=== PATIENT | male | born 1955 | race Caucasian/White ===

== ENCOUNTER 2016-08-26 16:16 | Emergency (ER) | payer OTHER ==
[2016-08-26] MEDS ORDERED: AMOXIC-POT CLAV 875MG STARTER 2 EACH TABLET PO STA (17:35)
[2016-08-26] MEDS ORDERED: SULFAMETH-TMP DS STARTER PACK 2 TAB BTL PO STA (17:35)
--- NOTE | 2016-08-26 18:00 | ED ---
General Adult HPI - General Chief complaint: Skin/Abscess/Foreign Body Stated complaint: Leg Pain Time Seen by Provider: 08/26/16 17:00 Source: patient, EMS, RN notes reviewed, old records reviewed Mode of arrival: EMS - History of Present Illness Initial comments: Chief complaint history of present illness a 31-year-old male with a chronic left leg infection. He has an the past been in the hospital and spent multiple weeks in nursing facility's. Recently noticed some redness to his mid left thigh area. He's been having the wound clean at home with normal saline and put some peroxide by a visiting attendant. Denying fever or other problems this time. Thinks he needs to be on antibiotics. - Related Data Home Medications Medication Instructions Recorded Confirmed Baclofen [Lioresal] 20 mg PO QID PRN 04/24/15 08/26/16 Ergocalciferol [Vitamin D2] 50,000 unit PO FR 04/24/15 08/26/16 Furosemide [Lasix] 80 mg PO BID 04/24/15 08/26/16 HYDROcodone/APAP 10-325MG [Ira[place] 1 tab PO QID PRN 04/24/15 08/26/16 10-325] Ibuprofen [Motrin] 800 mg PO Q8HR PRN 04/24/15 08/26/16 Potassium Chloride [K-Tab ER] 20 meq PO DAILY 04/24/15 08/26/16 Ranitidine HCl [Zantac] 150 mg PO BID 04/24/15 08/26/16 Acetaminophen [Tylenol] 500 mg PO TID PRN 09/25/15 08/26/16 Multivitamins, Thera [Multivitamin 1 tab PO DAILY 08/26/16 08/26/16 (formulary)] Previous Rx's Medication Instructions Recorded Amoxicillin/Potassium Clav 1 each PO Q12HR #20 tab 08/26/16 [Augmentin 875-125 Tablet] Sulfamethox-Tmp 800-160Mg [Bactrim 1 each PO Q12HR #20 tab 08/26/16 DS 800-160 mg] Allergies Allergy/AdvReac Type Severity Reaction Status Date / Time adhesive Allergy Rash/Hives Verified 08/26/16 16:59 latex Allergy Rash/Hives Verified 09/25/15 22:08 levofloxacin [From Levaquin] Allergy Rash/Hives Verified 08/26/16 16:59 metolazone Allergy Unknown Verified 08/26/16 16:59 ciprofloxacin [From Cipro] AdvReac Diarrhea Verified 08/26/16 16:59 ciprofloxacin HCl AdvReac Diarrhea Verified 08/26/16 16:59 [From Cipro] PAPER TAPE Allergy Mild Rash/Hives Uncoded 09/25/15 21:01 Review of Systems ROS Statement: Those systems with pertinent positive or pertinent negative responses have been documented in the HPI. Review of systems no complaint of headache chest pain shortness breath GI/ problems this time. Chronic left leg infection for over a year. Does not want return to the wound clinic because they scraped it and it hurts him. All systems are reviewed. Past medical problems significant for CHF, he's never had a cardiac cath or stent placed. He has had rheumatoid arthritis, and chronic nonhealing left leg ulcer. Surgeries left hip surgery twice he fractured through the old repair. Family history noncontributory. ALLERGIES to adhesives, latex, Levaquin, metolazone, Cipro and paper tape. ROS Other: All systems not noted in ROS Statement are negative. Past Medical History Past Medical History: Coronary Artery Disease (CAD), Chest Pain / Angina, Heart Failure, Rheumatoid Arthritis (RA), Rheumatoid Arthritis (RA) Additional Past Medical History / Comment(s): non healing left leg wound History of Any Multi-Drug Resistant Organisms: VRE Date of last positivie culture/infection: 07/07/15 MDRO Source:: left leg Additional Past Surgical History / Comment(s): L HIP SUGERY 1999, 2015 L hip repaired Past Anesthesia/Blood Transfusion Reactions: No Reported Reaction Past Psychological History: Anxiety, Depression Smoking Status: Current some day smoker Past Alcohol Use History: None Reported Past Drug Use History: None Reported - Past Family History Mother Family Medical History: Cancer Additional Family Medical History / Comment(s): SKIN,BREAST General Exam - General Exam Comments Initial Comments: General: The patient is awake and alert, in no distress, and does not appear acutely ill. Here because he thinks he is developing an infection for chronic daily infected slow to nonhealing wound on his left calf area. Cardiovascular: There is a regular rate and rhythm. No murmur, rub or gallop is appreciated. Respiratory: Lungs are clear to auscultation, respirations are non-labored, breath sounds are equal. No wheezes, stridor, rales, or rhonchi. Gastrointestinal: Soft, non-distended, non-tender abdomen without masses or organomegaly noted. There is no rebound or guarding present. No CVA tenderness. Bowel sounds are unremarkable. Back: There is no tenderness to palpation in the midline. There is no obvious deformity. No rashes noted. Musculoskeletal: The wound was undressed on the posterior aspect of his left leg. The area size of a silver dollar. Slowly healing. Not draining. Neurological: No neuro deficits. Skin: Skin is warm and dry and no rashes or lesions are noted. Course Vital Signs 08/26/16 16:22 Temperature 98.0 F Respiratory 18 Rate Medical Decision Making - Medical Decision Making Medical decision-making. The patient has had Augmentin and Bactrim in the past with good results for this particular wound. The patient be placed on Augmentin and Bactrim. Follow-up family physician and his infectious disease doctor. Return emergency room as needed X-ray of the femur and hip show healing bone. No acute fractures. Awaiting radiologist's final impression. 3 Disposition Clinical Impression: Chronic wound of extremity Disposition: HOME SELF-CARE Condition: Fair Instructions: Chronic Wound Care (ED) Additional Instructions: Continue frequent cleaning. Follow-up family physician and your infectious disease doctor. Take Augmentin and Bactrim as directed. Prescriptions: Amoxicillin/Potassium Clav [Augmentin 875-125 Tablet] 1 each PO Q12HR #20 tab Sulfamethox-Tmp 800-160Mg [Bactrim DS 800-160 mg] 1 each PO Q12HR #20 tab Referrals: Fredrick Pendleton MD [REFERRING] - 1-2 days Time of Disposition: 18:28
--- NOTE | 2016-08-26 18:45 | XR ---
Exam: FILM LEFT FEMUR INDICATION: Pain COMPARISON: Left femur radiograph 09/25/15 FINDINGS: 5 views of the left femur are obtained. 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 Since prior exam and additional lateral plate screw fixation of the mid femur shaft fracture is noted with improved alignment though portion of the fracture line is still visible. Previous distal left femur shaft plate screw fixation hardware with healed fracture again noted. The hardware appears intact. No hip joint malalignment. There is osteopenia. Osteoarthritic changes involving the knee joint are noted with medial compartment moderate knee joint space narrowing and marginal osteophyte formation. IMPRESSION: Since prior left femur exam there has been additional lateral plate screw fixation of a proximal femur shaft fracture with improved alignment though portion of the fracture line appears to still be visible. No new acute fracture. Hardware appears intact. Left total hip arthroplasty with heterotopic ossification again noted. No hip joint malalignment. Old healed fracture distal femur shaft with plate screw fixation hardware again noted. There is osteopenia. Osteoarthritic changes left knee joint.
--- NOTE | 2016-08-26 18:47 | XR ---
Exam: FILM LEFT HIP INDICATION: Pain COMPARISON: Left femur radiograph 09/25/15, left hip exam 09/25/15 FINDINGS: 2 views of the left hip are obtained. 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 Since prior exam an additional lateral plate screw fixation of the mid femur shaft fracture is noted with improved alignment though portion of the fracture line is still visible. Additional more distal plate screw fixation hardware in the femur shaft is noted partially imaged. Visualized hardware appears intact. No hip joint malalignment. There is osteopenia. Remaining soft tissues appear unremarkable radiographically. 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 No new acute fractures identified. Since prior exam an additional lateral plate screw fixation of the mid femur shaft fracture is noted with improved alignment though portion of the fracture line is still visible. Additional more distal plate screw fixation hardware in the femur shaft is noted partially imaged. Visualized hardware appears intact. No hip joint malalignment. There is osteopenia.
[2016-08-26 19:28] VITALS: BP 140/91; PULSE 78; RESP 16; TEMP 98.1
== END 2016-08-26 19:59 | disposition home or self-care (01) ==
LOC: EC 16:16
DX: L08.9 Local infection of the skin and subcutaneous tissue, unspecified (principal); S81.802D Unspecified open wound, left lower leg, subsequent encounter; F17.200 Nicotine dependence, unspecified, uncomplicated; Z98.890 Other specified postprocedural states; Z91.040 Latex allergy status; Z91.048 Other nonmedicinal substance allergy status; Z88.1 Allergy status to other antibiotic agents; Z88.8 Allergy status to other drugs, medicaments and biological substances; Z79.899 Other long term (current) drug therapy
CPT/HCPCS: 73502; 99284

== ENCOUNTER 2016-09-26 16:21 | Inpatient (IN) | payer OTHER ==
[2016-09-26] MEDS ORDERED: VANCOMYCIN 1,000 MG in SODIUM CHLORIDE 0.9% 250 ML IVPB STA (16:44)
[2016-09-26] MEDS ORDERED: IV VANCOMYCIN PER PHARMACY 1 EACH MISC MISCELLANE PRN (16:45)
[2016-09-26] MEDS ORDERED: HYDROmorphone 1 MG/ML 1 ML SYRINGE IVP STA (16:53)
[2016-09-26] MEDS ORDERED: ONDANSETRON 4 MG/2 ML VIAL IVP STA (16:53)
--- NOTE | 2016-09-26 16:57 | ED ---
General Adult HPI - General Chief complaint: Extremity Problem,Nontraumatic Stated complaint: WOUND ON LEFT LEG Time Seen by Provider: 09/26/16 16:31 Source: patient, EMS, RN notes reviewed, old records reviewed Mode of arrival: EMS Limitations: no limitations - History of Present Illness Initial comments: Patient 61-year-old male with a significant past medical history for chronic wound to the left lower leg, who presents emergency room today with a chief complaint of increased infection area patient does admit that he was seen in the emergency room approximate one month ago placed on Bactrim and Augmentin. He states been taking this antibiotic now for the past 3 weeks. He states that his noticed that there is increased redness and increased infection. He states he's had some sweats and chills. Patient does admit that he has care nurse sees and dress his wound. Patient states does not seem to be improving. Patient does admit that he has been admitted for this wound approximately a year ago. Patient denies any other complaints or symptoms. Patient denies any recent fever, chills, shortness of breath, chest pain, back pain, abdominal pain , nausea or vomiting, dysuria or hematuria, constipation or diarrhea, headaches or visual changes, or any other complaints. - Related Data Home Medications Medication Instructions Recorded Confirmed Baclofen [Lioresal] 20 mg PO QID PRN 04/24/15 09/26/16 Ergocalciferol [Vitamin D2] 50,000 unit PO FR 04/24/15 09/26/16 Furosemide [Lasix] 80 mg PO BID 04/24/15 09/26/16 HYDROcodone/APAP 10-325MG [M[place] 1 tab PO QID PRN 04/24/15 09/26/16 10-325] Ibuprofen [Motrin] 800 mg PO Q8HR PRN 04/24/15 09/26/16 Potassium Chloride [K-Tab ER] 20 meq PO DAILY 04/24/15 09/26/16 Ranitidine HCl [Zantac] 150 mg PO BID 04/24/15 09/26/16 Acetaminophen [Tylenol] 500 mg PO TID PRN 09/25/15 09/26/16 Multivitamins, Thera [Multivitamin 1 tab PO DAILY 08/26/16 09/26/16 (formulary)] Amoxicillin/Potassium Clav 1 tab PO Q12HR 09/26/16 09/26/16 [Augmentin 875-125 Tablet] Sulfamethox-Tmp 800-160Mg [Bactrim 1 tab PO Q12HR 09/26/16 09/26/16 DS 800-160 mg] Allergies Allergy/AdvReac Type Severity Reaction Status Date / Time adhesive Allergy Rash/Hives Verified 09/26/16 17:07 amoxicillin [From Augmentin] Allergy Rash/Hives Verified 09/26/16 17:09 clavulanic acid Allergy Rash/Hives Verified 09/26/16 17:09 [From Augmentin] latex Allergy Rash/Hives Verified 09/26/16 17:07 levofloxacin [From Levaquin] Allergy Rash/Hives Verified 09/26/16 17:07 metolazone Allergy Unknown Verified 09/26/16 17:07 sulfamethoxazole Allergy Rash/Hives Verified 09/26/16 17:09 [From Bactrim] trimethoprim [From Bactrim] Allergy Rash/Hives Verified 09/26/16 17:09 ciprofloxacin [From Cipro] AdvReac Diarrhea Verified 09/26/16 17:07 ciprofloxacin HCl AdvReac Diarrhea Verified 09/26/16 17:07 [From Cipro] PAPER TAPE Allergy Mild Rash/Hives Uncoded 09/25/15 21:01 Review of Systems ROS Statement: Those systems with pertinent positive or pertinent negative responses have been documented in the HPI. ROS Other: All systems not noted in ROS Statement are negative. Past Medical History Past Medical History: Coronary Artery Disease (CAD), Chest Pain / Angina, Heart Failure, Rheumatoid Arthritis (RA), Rheumatoid Arthritis (RA) Additional Past Medical History / Comment(s): non healing left leg wound History of Any Multi-Drug Resistant Organisms: VRE Date of last positivie culture/infection: 07/07/15 MDRO Source:: left leg Additional Past Surgical History / Comment(s): L HIP SUGERY 1999, 2015 L hip repaired Past Anesthesia/Blood Transfusion Reactions: No Reported Reaction Past Psychological History: Anxiety, Depression Smoking Status: Current some day smoker Past Alcohol Use History: None Reported Past Drug Use History: None Reported - Past Family History Mother Family Medical History: Cancer Additional Family Medical History / Comment(s): SKIN,BREAST General Exam - General Exam Comments Initial Comments: General: The patient is awake and alert, in no distress, and does not appear acutely ill. Eye: Pupils are equal, round and reactive to light, extra-ocular movements are intact. No nystagmus. There is normal conjunctiva bilaterally. No signs of icterus. Ears, nose, mouth and throat: There are moist mucous membranes and no oral lesions. Neck: The neck is supple, there is no tenderness or JVD. Cardiovascular: There is a regular rate and rhythm. No murmur, rub or gallop is appreciated. Respiratory: Lungs are clear to auscultation, respirations are non-labored, breath sounds are equal. No wheezes, stridor, rales, or rhonchi. Gastrointestinal: [Soft, non-distended, non-tender abdomen without masses or organomegaly noted. There is no rebound or guarding present. No CVA tenderness. Bowel sounds are unremarkable.] Musculoskeletal: Normal ROM, no tenderness. Strength 5/5. Sensation intact. Pulses equal bilaterally 2+. Neurological: A&O x 3. CN II-XII intact, There are no obvious motor or sensory deficits. Coordination appears grossly intact. Speech is normal. Skin: Ulcerated wound to the posterior aspect of the left lower leg. There is local redness or erythema to the left lower extremity with no lymphangitic streaking. Psychiatric: Cooperative, appropriate mood & affect, normal judgment. Limitations: no limitations Course Vital Signs 09/26/16 16:26 Temperature 98.3 F Pulse Rate 104 H Respiratory 18 Rate Blood Pressure 133/65 O2 Sat by Pulse 93 L Oximetry Medical Decision Making - Medical Decision Making Patient's x-ray reviewed and is negative for any acute abnormalities. Results were discussed with the patient. His labs been reviewed 17,000 white count. Patient does admit to increased pain and redness to the left calf area. Patient has been on antibiotics of Bactrim and Augmentin. He states is been no improvement. he will be admitted started on vancomycin here the emergency room. he is aware the plan states understanding. - Lab Data Result diagrams: 09/26/16 16:53 09/26/16 16:53 Lab Results 09/26/16 09/26/16 Range/Units 16:53 16:53 WBC 17.0 H (3.8-10.6) k/uL RBC 4.17 L (4.30-5.90) m/uL Hgb 14.6 (13.0-17.5) gm/dL Hct 42.3 (39.0-53.0) % MCV 101.3 H (80.0-100.0) fL MCH 34.9 (25.0-35.0) pg MCHC 34.5 (31.0-37.0) g/dL RDW 12.4 (11.5-15.5) % Plt Count 220 (150-450) k/uL Neutrophils % 92 % Lymphocytes % 4 % Monocytes % 3 % Eosinophils % 0 % Basophils % 0 % Neutrophils # 15.7 H (1.3-7.7) k/uL Lymphocytes # 0.7 L (1.0-4.8) k/uL Monocytes # 0.4 (0-1.0) k/uL Eosinophils # 0.1 (0-0.7) k/uL Basophils # 0.0 (0-0.2) k/uL Sodium 140 (137-145) mmol/L Potassium 3.7 (3.5-5.1) mmol/L Chloride 103 (98-107) mmol/L Carbon Dioxide 26 (22-30) mmol/L Anion Gap 11 mmol/L BUN 16 (9-20) mg/dL Creatinine 0.60 L (0.66-1.25) mg/dL Est GFR (MDRD) Af Amer >60 (>60 ml/min/1.73 sqM) Est GFR (MDRD) Non-Af >60 (>60 ml/min/1.73 sqM) Glucose 117 H (74-99) mg/dL Calcium 9.3 (8.4-10.2) mg/dL Total Bilirubin 0.9 (0.2-1.3) mg/dL AST 26 (17-59) U/L ALT 40 (21-72) U/L Alkaline Phosphatase 148 H (38-126) U/L Total Protein 6.1 L (6.3-8.2) g/dL Albumin 3.3 L (3.5-5.0) g/dL Disposition Clinical Impression: Wound cellulitis Disposition[facility] Condition: Stable Referrals: Monica Knight MD [Primary Care Provider] - 1-2 days Time of Disposition: 17:35
[2016-09-26 17:12] LABS: Basophils % (A) 0 %; CH 33.7; CHCM 33.5; Eosinophils # (A) 0.1 k/uL (0-0.7); Eosinophils % (A) 0 %; HCT 42.3 % (39.0-53.0); HDW 2.57; HGB 14.6 gm/dL (13.0-17.5); Luc # (Auto) 0.08; Luc % (Auto) 1; Lymphocytes # (A) 0.7 k/uL (1.0-4.8); Lymphocytes % (A) 4 %; MCH 34.9 pg (25.0-35.0); MCHC 34.5 g/dL (31.0-37.0); MCV 101.3 fL (80.0-100.0); Mean Platelet Volume 7.2; Monocytes # (A) 0.4 k/uL (0-1.0); Monocytes % (A) 3 %; Neutrophils # (A) 15.7 k/uL (1.3-7.7); Neutrophils % (A) 92 %; RBC 4.17 m/uL (4.30-5.90); RDW 12.4 % (11.5-15.5); WBC (Perox) 16.24
[2016-09-26 17:25] LABS: ALT 40 U/L (21-72); AST 26 U/L (17-59); Alkaline Phosphatase 148 U/L (38-126); Anion Gap 11 mmol/L; Blood Urea Nitrogen 16 mg/dL (9-20); Calcium 9.3 mg/dL (8.4-10.2); Carbon Dioxide 26 mmol/L (22-30); Chloride 103 mmol/L (98-107); Glucose 117 mg/dL (74-99); Non-African American GFR(MDRD) >60 (>60 ml/min/1.73 sqM); Potassium 3.7 mmol/L (3.5-5.1); Sodium 140 mmol/L (137-145); Total Bilirubin 0.9 mg/dL (0.2-1.3); Total Protein 6.1 g/dL (6.3-8.2)
[2016-09-26] MEDS ORDERED: VANCOMYCIN 2,500 MG in SODIUM CHLORIDE 0.9% 500 ML IVPB ONE (17:30)
--- NOTE | 2016-09-26 17:40 | XR ---
EXAMINATION TYPE: XR tibia fibula LT - 4V DATE OF EXAM: 09/26/2016 COMPARISON: 08/26/2016 HISTORY: Pain with nonhealing wound TECHNIQUE: 2 AP views and 2 lateral views extending from the knee to the ankle FINDINGS: The bones and joints are unremarkable except for osteoarthritis changes which are most pron ounced at the medial compartment of the knee. The soft tissues show moderate heterogeneity, a nonspecific finding. This includes what appears to be bandaging and also scattered small flake-like soft tissues calcifications There is no soft tissue em physema. No radiopaque foreign body. IMPRESSION: 1. No acute skeletal or joint findings. 2. No definite acute soft tissue process.
[2016-09-26] MEDS ORDERED: ONDANSETRON 4 MG/2 ML VIAL IVP PRN (17:45)
[2016-09-26] MEDS ORDERED: HYDROcodone/APAP 5-325MG 1 EACH TAB PO PRN (17:45)
[2016-09-26] MEDS ORDERED: NALOXONE 0.4 MG/ML 1 ML VIAL IV PRN (17:45)
[2016-09-26] MEDS ORDERED: MAG HYDROX/AL HYDROX/SIMETH 30 ML, HYOSCYAMINE ELIXIR 10 ML, CIMETIDINE HCL 300 MG, LID... PO STA ×4 (18:35)
[2016-09-26] MEDS ORDERED: diphenhydrAMINE 50 MG/ML 1 ML VIAL IVP STA (19:16)
[2016-09-26 20:54] LABS: Glucose,Whole Blood 117 mg/dL (75-99)
[2016-09-26] MEDS: HYDROmorphone 1 MG/ML 1 ML SYRINGE IV PRN (21:59)
[2016-09-26 22:45] VITALS: BMI 46.2
[2016-09-26] MEDS: VANCOMYCIN 2,250 MG in SODIUM CHLORIDE 0.9% 500 ML IVPB SCH (23:59)
[2016-09-27] MEDS: ACETAMINOPHEN TAB 325 MG TAB PO PRN ×3 (00:53→17:49)
[2016-09-27 08:51] LABS: Basophils % (A) 0 %; CH 34.2; CHCM 31.8; Eosinophils # (A) 0.1 k/uL (0-0.7); Eosinophils % (A) 1 %; HCT 39.2 % (39.0-53.0); HDW 2.55; HGB 12.8 gm/dL (13.0-17.5); Luc # (Auto) 0.24; Luc % (Auto) 2; Lymphocytes # (A) 0.7 k/uL (1.0-4.8); Lymphocytes % (A) 5 %; MCH 35.2 pg (25.0-35.0); MCHC 32.6 g/dL (31.0-37.0); Macrocytosis Moderate; Monocytes # (A) 0.5 k/uL (0-1.0); Monocytes % (A) 3 %; Neutrophils # (A) 12.5 k/uL (1.3-7.7); Neutrophils % (A) 89 %; RBC 3.63 m/uL (4.30-5.90); RDW 13.3 % (11.5-15.5); WBC (Perox) 14.04
[2016-09-27 09:04] LABS: MCV 105.3 fL (80.0-100.0)
[2016-09-27 09:23] LABS: ALT 41 U/L (21-72); AST 24 U/L (17-59); Alkaline Phosphatase 143 U/L (38-126); Anion Gap 8 mmol/L; Blood Urea Nitrogen 11 mg/dL (9-20); Calcium 8.6 mg/dL (8.4-10.2); Carbon Dioxide 23 mmol/L (22-30); Chloride 106 mmol/L (98-107); Glucose 112 mg/dL (74-99); Non-African American GFR(MDRD) >60 (>60 ml/min/1.73 sqM); Potassium 3.8 mmol/L (3.5-5.1); Sodium 137 mmol/L (137-145); Total Bilirubin 0.6 mg/dL (0.2-1.3); Total Protein 5.2 g/dL (6.3-8.2)
[2016-09-27] MEDS ORDERED: ERGOCALCIFEROL 50,000 UNIT CAP PO SCH (10:00)
--- NOTE | 2016-09-27 10:40 | P.CONS ---
History of Present Illness - Reason for Consult Consult date: 09/27/16 Cellulitis, failed outpatient treatment - History of Present Illness This is a 61-year-old male patient who is known to infectious disease services due to venous stasis ulcers to the left lower extremity and has been treated for osteomyelitis in the past requiring IV antibiotics and patient was placed at [facility] for treatment, he has been a Wound Healing patient in the past most recently this was in 2015 and appears his last visit there was 2015. Subsequently, in September 2015, the patient had an acute fracture of the proximal femur at the lower end of the hip prosthesis. Patient was then transferred to [facility] where Dr. rubio performed surgery. Patient states he is now living at home by himself with homecare nurse in place and a business performance advisor. He is mostly wheelchair bound but does use crutches and walker for minimal ambulation. Patient gives history that he presented to [facility] emergency center on August 26 and was seen [address] Fields and placed on Bactrim and Augmentin. He states he was given 3 courses of 10 days of antibiotics and has been taking them as instructed. He states on September 21 he developed chills, sweats and pain to his left lower extremity and thought the leg infection was getting worse. He was going to come in on Friday but he was too tired and ended up coming in yesterday. Tib-fib x-ray showed no acute fracture. He was started on vancomycin and admitted to the [facility] floor. His temperature maximum 100.7 and white count of 17. Blood cultures showing gram-negative rods. Patient is complaining of a rash and hives on his arms and abdomen and states this started on Friday. He states he has had decreased appetite with nausea but no vomiting or diarrhea. He denies any dysuria. He does state he has had decreased urinary output but did not take his Lasix yesterday and urine has been dark in color. Regarding local wound care, patient states that he has zinc oxide put on his leg and then wrapped. His home care nurse does this or his business performance advisor. He does have history of rheumatoid arthritis and is only on Motrin, baclofen and [place]. He follows with Dr. Emmanuel for pain management. Patient is an active smoker and trying to quit, currently down to less than half a pack per day. Review of Systems All systems: negative Constitutional: Reports chills, Reports fatigue, Reports fever, Reports malaise , Reports poor appetite, Reports sweats, Reports weakness Eyes: denies blurred vision, denies pain Ears, nose, mouth and throat: Denies bleeding gums, Denies dental pain, Denies dysphagia, Denies headache, Denies mouth pain, Denies sore throat Cardiovascular: Denies chest pain, Denies shortness of breath Respiratory: Denies cough, Denies cough with sputum, Denies dyspnea, Denies excessive sputum, Denies hemoptysis, Denies home oxygen Gastrointestinal: Reports loss of appetite, Reports nausea, Denies abdominal pain, Denies diarrhea, Denies vomiting Genitourinary: Denies dysuria, Denies flank pain, Denies hematuria, Denies urinary frequency, Denies urinary retention Musculoskeletal: Denies myalgias Integumentary: Reports wounds, Denies pruritus, Denies rash Neurological: Denies numbness, Denies weakness Psychiatric: Denies anxiety, Denies depression Endocrine: Denies fatigue, Denies weight change Past Medical History Past Medical History: Coronary Artery Disease (CAD), Chest Pain / Angina, Heart Failure, Rheumatoid Arthritis (RA), Rheumatoid Arthritis (RA) Additional Past Medical History / Comment(s): non healing left leg wound History of Any Multi-Drug Resistant Organisms: VRE Year Discovered:: 07/07/15 MDRO Source:: left leg Additional Past Surgical History / Comment(s): L HIP SUGERY 1999, 2015 L hip repaired Past Anesthesia/Blood Transfusion Reactions: No Reported Reaction Past Psychological History: Anxiety, Depression Smoking Status: Current some day smoker Past Alcohol Use History: None Reported Additional Past Alcohol Use History / Comment(s): Patient is a smoker currently at less than one half per day and started smoking when he was 24 years of age. He denies any medical marijuana, marijuana, street drug or alcohol use. He lives alone. There are no pets in the home. No recent travel. He is on disability. Past Drug Use History: None Reported - Past Family History Mother Family Medical History: Cancer Additional Family Medical History / Comment(s): SKIN,BREAST Medications and Allergies Home Medications Medication Instructions Recorded Confirmed Type Baclofen [Lioresal] 20 mg PO QID PRN 04/24/15 09/26/16 History Ergocalciferol [Vitamin D2] 50,000 unit PO FR 04/24/15 09/26/16 History Furosemide [Lasix] 80 mg PO BID 04/24/15 09/26/16 History HYDROcodone/APAP 10-325MG [[place] 1 tab PO QID PRN 04/24/15 09/26/16 History 10-325] Ibuprofen [Motrin] 800 mg PO Q8HR PRN 04/24/15 09/26/16 History Potassium Chloride [K-Tab ER] 20 meq PO DAILY 04/24/15 09/26/16 History Ranitidine HCl [Zantac] 150 mg PO BID 04/24/15 09/26/16 History Acetaminophen [Tylenol] 500 mg PO TID PRN 09/25/15 09/26/16 History Multivitamins, Thera [Multivitamin 1 tab PO DAILY 08/26/16 09/26/16 History (formulary)] Amoxicillin/Potassium Clav 1 tab PO Q12HR 09/26/16 09/26/16 History [Augmentin 875-125 Tablet] Sulfamethox-Tmp 800-160Mg [Bactrim 1 tab PO Q12HR 09/26/16 09/26/16 History DS 800-160 mg] Allergies Allergy/AdvReac Type Severity Reaction Status Date / Time adhesive Allergy Rash/Hives Verified 09/26/16 17:07 amoxicillin [From Augmentin] Allergy Rash/Hives Verified 09/26/16 17:09 clavulanic acid Allergy Rash/Hives Verified 09/26/16 17:09 [From Augmentin] latex Allergy Rash/Hives Verified 09/26/16 17:07 levofloxacin [From Levaquin] Allergy Rash/Hives Verified 09/26/16 17:07 metolazone Allergy Unknown Verified 09/26/16 17:07 sulfamethoxazole Allergy Rash/Hives Verified 09/26/16 17:09 [From Bactrim] trimethoprim [From Bactrim] Allergy Rash/Hives Verified 09/26/16 17:09 ciprofloxacin [From Cipro] AdvReac Diarrhea Verified 09/26/16 17:07 ciprofloxacin HCl AdvReac Diarrhea Verified 09/26/16 17:07 [From Cipro] PAPER TAPE Allergy Mild Rash/Hives Uncoded 09/25/15 21:01 Physical Exam Vitals: Vital Signs Temp Pulse Pulse Pulse Resp BP BP 09/27/16 07:00 97.6 F 89 16 113/60 09/26/16 23:00 100.7 F H 107 H 16 09/26/16 20:01 98.4 F 80 18 143/73 09/26/16 18:12 98.6 F 73 18 129/58 09/26/16 16:26 98.3 F 104 H 18 133/65 BP Pulse Ox 09/27/16 07:00 90 L 09/26/16 23:00 125/63 92 L 09/26/16 20:01 95 09/26/16 18:12 95 09/26/16 16:26 93 L Intake and Output 09/26/16 09/27/16 09/27/16 22:59 06:59 14:59 Intake Total 250 Balance 250 Intake: Intake, IV Titration 250 Amount Vancomycin 2,250 mg In 250 Sodium Chloride 0.9% 500 ml @ 167 mls/hr IVPB Q8H [facility] Rx#:[id number] Other: Voiding Method Urinal Weight 159 kg Gen: This is a morbidly obese 61-year-old male. He is sitting up in bed and appears to be in no acute distress. HEENT: Head is atraumatic, normocephalic. Pupils equal, round. Sclerae is anicteric. Conjunctiva pink. Mucous members of the mouth are moist. Patient is edentulous. No thrush noted. NECK: Short and thick. Supple. No JVD. No lymphadenopathy. No thyromegaly. LUNGS: Clear to auscultation. No wheezes or rhonchi. No intercostal retractions. HEART: Regular rate and rhythm. No murmur. ABDOMEN: Morbidly obese Soft. Bowel sounds are present. No masses. No tenderness. No redness under abdominal folds. EXTREMITIES: There is left lower extremity edema and erythema. Dressing not removed and deferred to Dr. Kilgore. Dorsalis pedis is +2 bilaterally. NEUROLOGICAL: Patient is awake, alert and oriented x3. Cranial nerves 2 through 12 are grossly intact. Results Results: Laboratory Results WBC 14.0 k/uL (3.8-10.6) H 09/27/16 08:07 RBC 3.63 m/uL (4.30-5.90) L 09/27/16 08:07 Hgb 12.8 gm/dL (13.0-17.5) L 09/27/16 08:07 Hct 39.2 % (39.0-53.0) 09/27/16 08:07 MCV 105.3 fL (80.0-100.0) H 09/27/16 08:07 MCH 35.2 pg (25.0-35.0) H 09/27/16 08:07 MCHC 32.6 g/dL (31.0-37.0) 09/27/16 08:07 RDW 13.3 % (11.5-15.5) 09/27/16 08:07 Plt Count 219 k/uL (150-450) 09/27/16 08:07 Neutrophils % 89 % 09/27/16 08:07 Lymphocytes % 5 % 09/27/16 08:07 Monocytes % 3 % 09/27/16 08:07 Eosinophils % 1 % 09/27/16 08:07 Basophils % 0 % 09/27/16 08:07 Neutrophils # 12.5 k/uL (1.3-7.7) H 09/27/16 08:07 Lymphocytes # 0.7 k/uL (1.0-4.8) L 09/27/16 08:07 Monocytes # 0.5 k/uL (0-1.0) 09/27/16 08:07 Eosinophils # 0.1 k/uL (0-0.7) 09/27/16 08:07 Basophils # 0.0 k/uL (0-0.2) 09/27/16 08:07 Macrocytosis Moderate 09/27/16 08:07 Sodium 137 mmol/L (137-145) 09/27/16 08:00 Potassium 3.8 mmol/L (3.5-5.1) 09/27/16 08:00 Chloride 106 mmol/L (98-107) 09/27/16 08:00 Carbon Dioxide 23 mmol/L (22-30) 09/27/16 08:00 Anion Gap 8 mmol/L 09/27/16 08:00 BUN 11 mg/dL (9-20) 09/27/16 08:00 Creatinine 0.48 mg/dL (0.66-1.25) L 09/27/16 08:00 Est GFR (MDRD) Af Amer >60 (>60 ml/min/1.73 sqM) 09/27/16 08:00 Est GFR (MDRD) Non-Af >60 (>60 ml/min/1.73 sqM) 09/27/16 08:00 Glucose 112 mg/dL (74-99) H 09/27/16 08:00 POC Glucose (mg/dL) 117 mg/dL (75-99) H 09/26/16 20:34 POC Glu Room Service Associate Guera Reyes 09/26/16 20:34 Calcium 8.6 mg/dL (8.4-10.2) 09/27/16 08:00 Total Bilirubin 0.6 mg/dL (0.2-1.3) 09/27/16 08:00 AST 24 U/L (17-59) 09/27/16 08:00 ALT 41 U/L (21-72) 09/27/16 08:00 Alkaline Phosphatase 143 U/L (38-126) H 09/27/16 08:00 Total Protein 5.2 g/dL (6.3-8.2) L 09/27/16 08:00 Albumin 2.8 g/dL (3.5-5.0) L 09/27/16 08:00 CBC & Chem 7: 09/27/16 08:07 09/27/16 08:00 Labs: Abnormal Lab Results - Last 24 Hours (Table) 09/26/16 09/26/16 09/26/16 Range/Units 16:53 16:53 20:34 WBC 17.0 H (3.8-10.6) k/uL RBC 4.17 L (4.30-5.90) m/uL Hgb (13.0-17.5) gm/dL MCV 101.3 H (80.0-100.0) fL MCH (25.0-35.0) pg Neutrophils # 15.7 H (1.3-7.7) k/uL Lymphocytes # 0.7 L (1.0-4.8) k/uL Creatinine 0.60 L (0.66-1.25) mg/dL Glucose 117 H (74-99) mg/dL POC Glucose (mg/dL) 117 H (75-99) mg/dL Alkaline Phosphatase 148 H (38-126) U/L Total Protein 6.1 L (6.3-8.2) g/dL Albumin 3.3 L (3.5-5.0) g/dL 09/27/16 Range/Units 08:07 WBC 14.0 H (3.8-10.6) k/uL RBC 3.63 L (4.30-5.90) m/uL Hgb 12.8 L (13.0-17.5) gm/dL MCV 105.3 H (80.0-100.0) fL MCH 35.2 H (25.0-35.0) pg Neutrophils # 12.5 H (1.3-7.7) k/uL Lymphocytes # 0.7 L (1.0-4.8) k/uL Creatinine (0.66-1.25) mg/dL Glucose (74-99) mg/dL POC Glucose (mg/dL) (75-99) mg/dL Alkaline Phosphatase (38-126) U/L Total Protein (6.3-8.2) g/dL Albumin (3.5-5.0) g/dL Microbiology - Last 24 Hours (Table) 09/26/16 16:53 Gram Stain - Preliminary Leg - Left Wound Culture - Preliminary 09/26/16 16:53 Blood Culture - Preliminary Blood Assessment and Plan Plan: This is a 61-year-old male who presented to the hospital with cellulitis of the left lower extremity failed outpatient treatment on 2 antibiotics. Patient presents with signs of sepsis and bacteremia with blood cultures showing gram-negative rods. Vancomycin will be discontinued at this time. Patient will be placed on gram-negative coverage. Repeat blood cultures will be ordered. Local wound care will be addressed. Continue supportive care. Further recommendations as patient progresses. The above dictated assessment and findings were discussed with Dr. Kilgore. The impression and plan of care have been directed as dictated. Maribel Chavez nurse practitioner acting as scribe for Dr. Kilgore.
[2016-09-27] MEDS: VANCOMYCIN 2,250 MG in SODIUM CHLORIDE 0.9% 500 ML IVPB SCH (11:04)
[2016-09-27] MEDS: MULTIVITAMINS, THERA 1 EACH TAB PO SCH (11:09)
[2016-09-27] MEDS: BACLOFEN 10 MG TAB PO PRN (11:10)
[2016-09-27] MEDS: HYDROcodone/APAP 10-325MG 1 EACH TAB PO PRN ×2 (11:18→17:48)
--- NOTE | 2016-09-27 13:56 | P.HPIM ---
History of Present Illness This is a 61-year-old male patient to the hospital for sepsis secondary to venous stasis ulcers to the left lower extremity and has been treated for osteomyelitis in the past requiring IV antibiotics and patient was placed at [facility] for treatment,patient presently stays at home is receiving home care He is mostly wheelchair bound but does use crutches and walker for minimal ambulation. patient is presently on Bactrim and Augmentin he had patient started having fever last night. He states he was given 3 courses of 10 days of antibiotics and has been taking them as instructed. He states on September 21 he developed chills, sweats and pain to his left lower extremity and thought the leg infection was getting worse. He was going to come in on Friday but he was too tired and ended up coming in yesterday. Tib-fib x-ray showed no acute fracture. He was started on vancomycin and admitted to the [facility] floor. His temperature maximum 100.7 and white count of 17. Blood cultures showing gram-negative rods. Patient is complaining of a rash and hives on his arms and abdomen and states this started on Friday. He states he has had decreased appetite with nausea but no vomiting or diarrhea. He denies any dysuria. patient is afebrile today. Infectious disease valid the patient and patient is on cephalosporins for gram-negative rods the blood culture. And wound care as per infectious disease Review of Systems REVIEW OF SYSTEMS: CONSTITUTIONAL: as mentioned in HPI HEENT: No recent visual problems or hearing problems. Denied any sore throat. CARDIOVASCULAR: No chest pain, orthopnea, PND, no palpitations, no syncope. PULMONARY: No shortness of breath, no cough, no hemoptysis. GASTROINTESTINAL: No diarrhea, no nausea, no vomiting, no abdominal pain. Normoactive bowel sounds. NEUROLOGICAL: No headaches, no weakness, no numbness. HEMATOLOGICAL: Denies any bleeding or petechiae. GENITOURINARY: Denies any burning micturition, frequency, or urgency. MUSCULOSKELETAL/RHEUMATOLOGICAL: Denies any joint pain, swelling, or any muscle pain. ulcer on the left calf stage III ENDOCRINE: Denies any polyuria or polydipsia. The rest of the 14-point review of systems is negative. Past Medical History Past Medical History: Coronary Artery Disease (CAD), Chest Pain / Angina, Heart Failure, Rheumatoid Arthritis (RA), Rheumatoid Arthritis (RA) Additional Past Medical History / Comment(s): non healing left leg wound History of Any Multi-Drug Resistant Organisms: VRE Date of last positivie culture/infection: 07/07/15 MDRO Source:: left leg Additional Past Surgical History / Comment(s): L HIP SUGERY 1999, 2015 L hip repaired Past Anesthesia/Blood Transfusion Reactions: No Reported Reaction Past Psychological History: Anxiety, Depression Smoking Status: Current some day smoker Past Alcohol Use History: None Reported Additional Past Alcohol Use History / Comment(s): Patient is a smoker currently at less than one half per day and started smoking when he was 24 years of age. He denies any medical marijuana, marijuana, street drug or alcohol use. He lives alone. There are no pets in the home. No recent travel. He is on disability. Past Drug Use History: None Reported - Past Family History Mother Family Medical History: Cancer Additional Family Medical History / Comment(s): SKIN,BREAST Medications and Allergies Home Medications Medication Instructions Recorded Confirmed Type Baclofen [Lioresal] 20 mg PO QID PRN 04/24/15 09/26/16 History Ergocalciferol [Vitamin D2] 50,000 unit PO FR 04/24/15 09/26/16 History Furosemide [Lasix] 80 mg PO BID 04/24/15 09/26/16 History HYDROcodone/APAP 10-325MG [[place] 1 tab PO QID PRN 04/24/15 09/26/16 History 10-325] Ibuprofen [Motrin] 800 mg PO Q8HR PRN 04/24/15 09/26/16 History Potassium Chloride [K-Tab ER] 20 meq PO DAILY 04/24/15 09/26/16 History Ranitidine HCl [Zantac] 150 mg PO BID 04/24/15 09/26/16 History Acetaminophen [Tylenol] 500 mg PO TID PRN 09/25/15 09/26/16 History Multivitamins, Thera [Multivitamin 1 tab PO DAILY 08/26/16 09/26/16 History (formulary)] Amoxicillin/Potassium Clav 1 tab PO Q12HR 09/26/16 09/26/16 History [Augmentin 875-125 Tablet] Sulfamethox-Tmp 800-160Mg [Bactrim 1 tab PO Q12HR 09/26/16 09/26/16 History DS 800-160 mg] Allergies Allergy/AdvReac Type Severity Reaction Status Date / Time adhesive Allergy Rash/Hives Verified 09/26/16 17:07 amoxicillin [From Augmentin] Allergy Rash/Hives Verified 09/26/16 17:09 clavulanic acid Allergy Rash/Hives Verified 09/26/16 17:09 [From Augmentin] latex Allergy Rash/Hives Verified 09/26/16 17:07 levofloxacin [From Levaquin] Allergy Rash/Hives Verified 09/26/16 17:07 metolazone Allergy Unknown Verified 09/26/16 17:07 sulfamethoxazole Allergy Rash/Hives Verified 09/26/16 17:09 [From Bactrim] trimethoprim [From Bactrim] Allergy Rash/Hives Verified 09/26/16 17:09 ciprofloxacin [From Cipro] AdvReac Diarrhea Verified 09/26/16 17:07 ciprofloxacin HCl AdvReac Diarrhea Verified 09/26/16 17:07 [From Cipro] PAPER TAPE Allergy Mild Rash/Hives Uncoded 09/25/15 21:01 Physical Exam Vitals: Vital Signs Temp Pulse Pulse Pulse Resp BP BP 09/27/16 07:00 97.6 F 89 16 113/60 09/26/16 23:00 100.7 F H 107 H 16 09/26/16 20:01 98.4 F 80 18 143/73 09/26/16 18:12 98.6 F 73 18 129/58 09/26/16 16:26 98.3 F 104 H 18 133/65 BP Pulse Ox 09/27/16 07:00 90 L 09/26/16 23:00 125/63 92 L 09/26/16 20:01 95 09/26/16 18:12 95 09/26/16 16:26 93 L Intake and Output 09/26/16 09/27/16 09/27/16 22:59 06:59 14:59 Intake Total 250 Balance 250 Intake: Intake, IV Titration 250 Amount Vancomycin 2,250 mg In 250 Sodium Chloride 0.9% 500 ml @ 167 mls/hr IVPB Q8H [facility] Rx#:[id number] Other: Voiding Method Urinal Urinal # Voids 2 Weight 159 kg 159 kg Patient Weight 09/28/16 06:59 Weight 159 kg PHYSICAL EXAMINATION: GENERAL: The patient is alert and oriented x3, not in any acute distress. Well developed, well nourished. HEENT: Pupils are round and equally reacting to light. EOMI. No scleral icterus. No conjunctival pallor. Normocephalic, atraumatic. No pharyngeal erythema. No thyromegaly. CARDIOVASCULAR: S1 and S2 present. No murmurs, rubs, or gallops. PULMONARY: Chest is clear to auscultation, no wheezing or crackles. ABDOMEN: Soft, nontender, nondistended, normoactive bowel sounds. No palpable organomegaly. MUSCULOSKELETAL: No joint swelling or deformity. EXTREMITIES: No cyanosis, clubbing, HEENT has bilateral pedal edema chronic venous stasis and left lower leg there may be cellulitis of the left leg extending involving the whole left leg. Patient has a large ulcer on the posterior aspect of the leg stage III ulcer. No obvious exposed bone with surrounding cellulitis I didn't see any pus pockets. NEUROLOGICAL: Gross neurological examination did not reveal any focal deficits. SKIN: No rashes. Results CBC & Chem 7: 09/27/16 08:07 09/27/16 08:00 Labs: Abnormal Lab Results - Last 24 Hours (Table) 09/26/16 09/26/16 09/26/16 Range/Units 16:53 16:53 20:34 WBC 17.0 H (3.8-10.6) k/uL RBC 4.17 L (4.30-5.90) m/uL Hgb (13.0-17.5) gm/dL MCV 101.3 H (80.0-100.0) fL MCH (25.0-35.0) pg Neutrophils # 15.7 H (1.3-7.7) k/uL Lymphocytes # 0.7 L (1.0-4.8) k/uL Creatinine 0.60 L (0.66-1.25) mg/dL Glucose 117 H (74-99) mg/dL POC Glucose (mg/dL) 117 H (75-99) mg/dL Alkaline Phosphatase 148 H (38-126) U/L Total Protein 6.1 L (6.3-8.2) g/dL Albumin 3.3 L (3.5-5.0) g/dL 09/27/16 09/27/16 Range/Units 08:00 08:07 WBC 14.0 H (3.8-10.6) k/uL RBC 3.63 L (4.30-5.90) m/uL Hgb 12.8 L (13.0-17.5) gm/dL MCV 105.3 H (80.0-100.0) fL MCH 35.2 H (25.0-35.0) pg Neutrophils # 12.5 H (1.3-7.7) k/uL Lymphocytes # 0.7 L (1.0-4.8) k/uL Creatinine 0.48 L (0.66-1.25) mg/dL Glucose 112 H (74-99) mg/dL POC Glucose (mg/dL) (75-99) mg/dL Alkaline Phosphatase 143 H (38-126) U/L Total Protein 5.2 L (6.3-8.2) g/dL Albumin 2.8 L (3.5-5.0) g/dL Microbiology - Last 24 Hours (Table) 09/26/16 16:53 Blood Culture Gram Stain - Preliminary Blood 09/26/16 16:53 Gram Stain - Preliminary Leg - Left Wound Culture - Preliminary 09/26/16 16:53 Blood Culture - Preliminary Blood Thrombosis Risk Factor Assmnt - Choose All That Apply Any of the Below Risk Factors Present?: Yes Each Factor Represents 1 point: Age 41-60 years, Obesity (BMI >25) Other Risk Factors: No Other congenital or acquired thrombophilia - If yes, enter type in comment: No Thrombosis Risk Factor Assessment Total Risk Factor Score: 2 Thrombosis Risk Factor Assessment Level: Low Risk Assessment and Plan Plan: 1 sepsis and bacteremia with gram-negative rods. Possible source of infection being the left lower limb ulcer with cellulitis. Patient is oncefepime. Infectious disease is following the patient. #2 morbid obesity #3 bilateral chronic venous stasis with chronic venous stasis dermatosis. #4 chronic pain syndrome with narcotic dependence. #5 rheumatoid arthritis history. #6 coronary artery disease For above-mentioned chronic medical problems I'll continue his home medications.
[2016-09-27] MEDS ORDERED: VANCOMYCIN TROUGH DUE 1 EACH MISC MISCELLANE ONE (15:00)
[2016-09-27] MEDS: HYDROmorphone 1 MG/ML 1 ML SYRINGE IV PRN ×2 (16:03→20:46)
[2016-09-27] MEDS: diphenhydrAMINE 50 MG/ML 1 ML VIAL IVP SCH (16:16)
[2016-09-27] MEDS: MAG HYDROX/AL HYDROX/SIMETH 30 ML CUP PO PRN (16:24)
[2016-09-27] MEDS: FUROSEMIDE 80 MG TAB PO SCH ×2 (20:37→20:39)
[2016-09-27] MEDS: FAMOTIDINE 20 MG TAB PO SCH (20:37)
--- NOTE | 2016-09-27 23:10 | P.CON ---
Consult Note - . Consult date: 09/27/16 Assessment/Plan:: This is a 61-year-old male patient who is known to infectious disease services due to venous stasis ulcers to the left lower extremity and has been treated for osteomyelitis in the past requiring IV antibiotics and patient was placed at [facility] for treatment, he has been a Wound Healing patient in the past most recently this was in 2015 and appears his last visit there was 2015. Subsequently, in September 2015, the patient had an acute fracture of the proximal femur at the lower end of the hip prosthesis. Patient was then transferred to [facility] where Dr. rubio performed surgery. Patient states he is now living at home by himself with homecare nurse in place and a welder assistant. He is mostly wheelchair bound but does use crutches and walker for minimal ambulation. Patient gives history that he presented to [facility] emergency center on August 26 and was seen [address] Fields and placed on Bactrim and Augmentin. He states he was given 3 courses of 10 days of antibiotics and has been taking them as instructed. He states on September 21 he developed chills, sweats and pain to his left lower extremity and thought the leg infection was getting worse. He was going to come in on Friday but he was too tired and ended up coming in yesterday. Tib-fib x-ray showed no acute fracture. He was started on vancomycin and admitted to the [facility] floor. His temperature maximum 100.7 and white count of 17. Blood cultures showing gram-negative rods. Patient is complaining of a rash and hives on his arms and abdomen and states this started on Friday. He states he has had decreased appetite with nausea but no vomiting or diarrhea. He denies any dysuria. He does state he has had decreased urinary output but did not take his Lasix yesterday and urine has been dark in color. Regarding local wound care, patient states that he has zinc oxide put on his leg and then wrapped. His home care nurse does this or his welder assistant. He does have history of rheumatoid arthritis and is only on Motrin, baclofen and [place]. He follows with Dr. Emmanuel for pain management. Patient is an active smoker and trying to quit, currently down to less than half a pack per day. Please see the consult note is dictated by nurse practitioner Mrs. Maribel Chavez. This 61-year-old gentleman has a plethora of medical illness including some difficulty with anxiety and resultant aggressive behavior. Currently he is calm and comfortable. He is having difficulty with open ulceration to the left leg is noted. Please see the nursing photography regarding the left leg ulceration. The plan for now will be to utilize Santyl to gently debrided the area. He has no desire to follow the wound healing center because a redo debridement which he finds to be uncomfortable. We also suggest compression therapy which she does not tolerate. He has however utilizing his lymphedema pumps at home every other day for about an hour. This suggests that he uses this on a daily basis instead of every other day. This may help. Continue with his diuresis. There is evidence as noted the positive blood cultures are gram-negative bacilli. Antibiotic therapy with ceftazidime as prescribed. Nursing does relates shortly thereafter he developed a bit of a rash. Benadryl is given and he is changed azactam.Will continue current therapy with elevation. I agree with evaluation, assessment and plan as dictated by nurse practitioner Mrs. Maribel Chavez.
[2016-09-28] MEDS: diphenhydrAMINE 50 MG/ML 1 ML VIAL IVP SCH ×5 (00:11→23:21)
[2016-09-28] MEDS: AZTREONAM 2 GM in SODIUM CHLORIDE 0.9% 100 ML IVPB SCH ×4 (00:11→23:21)
[2016-09-28] MEDS: HYDROcodone/APAP 10-325MG 1 EACH TAB PO PRN ×3 (04:21→16:32)
[2016-09-28] MEDS: HYDROmorphone 1 MG/ML 1 ML SYRINGE IV PRN ×5 (04:42→20:33)
[2016-09-28] MEDS ORDERED: FUROSEMIDE 80 MG TAB PO SCH (06:00)
[2016-09-28] MEDS: FUROSEMIDE 80 MG TAB PO SCH ×2 (06:51→18:10)
[2016-09-28] MEDS: ACETAMINOPHEN TAB 325 MG TAB PO PRN (08:22)
[2016-09-28] MEDS: POTASSIUM CHLORIDE ER 20 MEQ TAB.ER PO SCH (08:23)
[2016-09-28] MEDS: FAMOTIDINE 20 MG TAB PO SCH ×2 (08:23→20:30)
[2016-09-28] MEDS ORDERED: NICOTINE 7MG/24HR PATCH TRANSDERM SCH (09:00)
--- NOTE | 2016-09-28 14:09 | P.PN ---
Subjective 61-year-old admitted for sepsis secondary to venous stasis ulcers in the left lower limb. Patient appears to be depressed but declining to take any medications for depression. Although patient denied any suicidal ideation at this point of time. Next Patient is comparing of pain in the left leg where he has ulcer. Patient is on appropriate pain management regimen at this point of time. And patient denied any fevers, chills, nausea, vomiting, abdominal pain Objective - Vital Signs Vital signs: Vital Signs Temp 97.1 F L 09/28/16 07:00 Pulse 90 09/28/16 07:00 Resp 18 09/28/16 07:00 BP 130/72 09/28/16 07:00 Pulse Ox 93 L 09/28/16 07:00 Intake & Output 09/27/16 09/28/16 09/28/16 18:59 06:59 18:59 Intake Total 1050 Output Total 406 646 3317 Balance -800 300 -1900 Weight 159 kg Intake: Oral 1050 Output: Urine 689 220 8030 Other: Voiding Method Urinal Urinal Urinal # Voids 2 # Bowel Movements 1 - Exam PHYSICAL EXAMINATION: GENERAL: The patient is alert and oriented x3, not in any acute distress. Well developed, well nourished. HEENT: Pupils are round and equally reacting to light. EOMI. No scleral icterus. No conjunctival pallor. Normocephalic, atraumatic. No pharyngeal erythema. No thyromegaly. CARDIOVASCULAR: S1 and S2 present. No murmurs, rubs, or gallops. PULMONARY: Chest is clear to auscultation, no wheezing or crackles. ABDOMEN: Soft, nontender, nondistended, normoactive bowel sounds. No palpable organomegaly. MUSCULOSKELETAL: No joint swelling or deformity. EXTREMITIES: No cyanosis, clubbing, HEENT has bilateral pedal edema chronic venous stasis and left lower leg there may be cellulitis of the left leg extending involving the whole left leg. Patient has a large ulcer on the posterior aspect of the leg stage III ulcer. No obvious exposed bone with surrounding cellulitis I didn't see any pus pockets. NEUROLOGICAL: Gross neurological examination did not reveal any focal deficits. SKIN: No rashes. - Labs CBC & Chem 7: 09/27/16 08:07 09/27/16 08:00 Labs: Microbiology - Last 24 Hours (Table) 09/27/16 10:45 Blood Culture - Preliminary Blood No Growth after 24 hours 09/27/16 10:23 Blood Culture - Final Blood 09/26/16 16:53 Gram Stain - Preliminary Leg - Left Wound Culture - Preliminary Gram Neg Bacilli Group D Enterococcus 09/26/16 16:53 Blood Culture Gram Stain - Preliminary Blood Blood Culture - Preliminary Gram Neg Bacilli Assessment and Plan Plan: 1 sepsis and bacteremia with gram-negative rods and group D enterococcus unknown cultures along with gram-negative bacilli. Possible source of infection being the left lower limb ulcer with cellulitis. Patient was switched days it here I am. Infectious disease is following the patient. #2 morbid obesity #3 bilateral chronic venous stasis with chronic venous stasis dermatosis. #4 chronic pain syndrome with narcotic dependence. #5 rheumatoid arthritis history. #6 coronary artery disease For above-mentioned chronic medical problems I'll continue his home medications.
[2016-09-28] MEDS: COLLAGENASE 250 UNIT/GM OINTMENT 30 GM TUBE TOPICAL SCH (15:00)
[2016-09-28] MEDS: MULTIVITAMINS, THERA 1 EACH TAB PO SCH (16:04)
--- NOTE | 2016-09-28 16:06 | P.PN ---
Subjective Principal diagnosis: Cellulitis, failed outpatient treatment This is a 61-year-old male patient who is known to infectious disease services due to venous stasis ulcers to the left lower extremity and has been treated for osteomyelitis in the past requiring IV antibiotics and patient was placed at [facility] for treatment, he has been a Wound Healing patient in the past most recently this was in 2015 and appears his last visit there was 2015. Subsequently, in September 2015, the patient had an acute fracture of the proximal femur at the lower end of the hip prosthesis. Patient was then transferred to [facility] where Dr. rubio performed surgery. Patient states he is now living at home by himself with homecare nurse in place and a membership director. He is mostly wheelchair bound but does use crutches and walker for minimal ambulation. Patient gives history that he presented to [facility] emergency center on August 26 [address] Fields and placed on Bactrim and Augmentin. He states he was given 3 courses of 10 days of antibiotics and has been taking them as instructed. He states on September 21 he developed chills, sweats and pain to his left lower extremity and thought the leg infection was getting worse. He was going to come in on Friday but he was too tired and ended up coming in yesterday. Tib-fib x-ray showed no acute fracture. He was started on vancomycin and admitted to the [facility] floor. His temperature maximum 100.7 and white count of 17. Blood cultures showing gram-negative rods. Patient is complaining of a rash and hives on his arms and abdomen and states this started on Friday. He states he has had decreased appetite with nausea but no vomiting or diarrhea. He denies any dysuria. He does state he has had decreased urinary output but did not take his Lasix yesterday and urine has been dark in color. Regarding local wound care, patient states that he has zinc oxide put on his leg and then wrapped. His home care nurse does this or his membership director. He does have history of rheumatoid arthritis and is only on Motrin, baclofen and [place]. He follows with Dr. Emmanuel for pain management. Patient is an active smoker and trying to quit, currently down to less than half a pack per day. Patient relates that he is still miserable. Is very unhappy with his pain control. States were "doing nothing for him". Objective - Vital Signs Vital signs: Vital Signs Temp 98.4 F 09/28/16 15:00 Pulse 99 09/28/16 15:00 Resp 18 09/28/16 15:00 BP 132/78 09/28/16 15:00 Pulse Ox 93 L 09/28/16 15:00 Intake & Output 09/27/16 09/28/16 09/28/16 18:59 06:59 18:59 Intake Total 1050 Output Total 919 010 4352 Balance -800 300 -2200 Weight 159 kg Intake: Oral 1050 Output: Urine 769 539 5079 Other: Voiding Method Urinal Urinal Urinal # Voids 2 # Bowel Movements 1 - Exam Gen: This is a morbidly obese 61-year-old male. He is sitting up in bed and appears uncomfortable and continues to have a very negative attitude. HEENT: Head is atraumatic, normocephalic. Pupils equal, round. Sclerae is anicteric. Conjunctiva pink. Mucous members of the mouth are moist. Patient is edentulous. No thrush noted. NECK: Short and thick. Supple. No JVD. No lymphadenopathy. No thyromegaly. LUNGS: Clear to auscultation. No wheezes or rhonchi. No intercostal retractions. HEART: Regular rate and rhythm. No murmur. ABDOMEN: Morbidly obese Soft. Bowel sounds are present. No masses. No tenderness. No redness under abdominal folds. EXTREMITIES: There is left lower extremity edema and erythema. Ulcerations of the left leg. Please see nursing photography. It is tender. In complaints of pain ascending the left leg also. Dorsalis pedis is +2 bilaterally. NEUROLOGICAL: Patient is awake, alert and oriented x3. - Labs CBC & Chem 7: 09/27/16 08:07 09/27/16 08:00 Labs: Microbiology - Last 24 Hours (Table) 09/27/16 10:45 Blood Culture - Preliminary Blood No Growth after 24 hours 09/27/16 10:23 Blood Culture - Final Blood 09/26/16 16:53 Gram Stain - Preliminary Leg - Left Wound Culture - Preliminary Gram Neg Bacilli Group D Enterococcus 09/26/16 16:53 Blood Culture Gram Stain - Preliminary Blood Blood Culture - Preliminary Gram Neg Bacilli Laboratory Results WBC 14.0 k/uL (3.8-10.6) H 09/27/16 08:07 RBC 3.63 m/uL (4.30-5.90) L 09/27/16 08:07 Hgb 12.8 gm/dL (13.0-17.5) L 09/27/16 08:07 Hct 39.2 % (39.0-53.0) 09/27/16 08:07 MCV 105.3 fL (80.0-100.0) H 09/27/16 08:07 MCH 35.2 pg (25.0-35.0) H 09/27/16 08:07 MCHC 32.6 g/dL (31.0-37.0) 09/27/16 08:07 RDW 13.3 % (11.5-15.5) 09/27/16 08:07 Plt Count 219 k/uL (150-450) 09/27/16 08:07 Neutrophils % 89 % 09/27/16 08:07 Lymphocytes % 5 % 09/27/16 08:07 Monocytes % 3 % 09/27/16 08:07 Eosinophils % 1 % 09/27/16 08:07 Basophils % 0 % 09/27/16 08:07 Neutrophils # 12.5 k/uL (1.3-7.7) H 09/27/16 08:07 Lymphocytes # 0.7 k/uL (1.0-4.8) L 09/27/16 08:07 Monocytes # 0.5 k/uL (0-1.0) 09/27/16 08:07 Eosinophils # 0.1 k/uL (0-0.7) 09/27/16 08:07 Basophils # 0.0 k/uL (0-0.2) 09/27/16 08:07 Macrocytosis Moderate 09/27/16 08:07 Sodium 137 mmol/L (137-145) 09/27/16 08:00 Potassium 3.8 mmol/L (3.5-5.1) 09/27/16 08:00 Chloride 106 mmol/L (98-107) 09/27/16 08:00 Carbon Dioxide 23 mmol/L (22-30) 09/27/16 08:00 Anion Gap 8 mmol/L 09/27/16 08:00 BUN 11 mg/dL (9-20) 09/27/16 08:00 Creatinine 0.48 mg/dL (0.66-1.25) L 09/27/16 08:00 Est GFR (MDRD) Af Amer >60 (>60 ml/min/1.73 sqM) 09/27/16 08:00 Est GFR (MDRD) Non-Af >60 (>60 ml/min/1.73 sqM) 09/27/16 08:00 Glucose 112 mg/dL (74-99) H 09/27/16 08:00 POC Glucose (mg/dL) 117 mg/dL (75-99) H 09/26/16 20:34 POC Glu [employer] Guera Reyes 09/26/16 20:34 Calcium 8.6 mg/dL (8.4-10.2) 09/27/16 08:00 Total Bilirubin 0.6 mg/dL (0.2-1.3) 09/27/16 08:00 AST 24 U/L (17-59) 09/27/16 08:00 ALT 41 U/L (21-72) 09/27/16 08:00 Alkaline Phosphatase 143 U/L (38-126) H 09/27/16 08:00 Total Protein 5.2 g/dL (6.3-8.2) L 09/27/16 08:00 Albumin 2.8 g/dL (3.5-5.0) L 09/27/16 08:00 Microbiology 09/27/16 10:45 Blood Blood Culture - Preliminary No Growth after 24 hours 09/27/16 10:23 Blood Blood Culture - Final 09/26/16 16:53 Leg - Left Gram Stain - Preliminary 09/26/16 16:53 Leg - Left Wound Culture - Preliminary Gram Neg Bacilli Group D Enterococcus 09/26/16 16:53 Blood Blood Culture Gram Stain - Preliminary 09/26/16 16:53 Blood Blood Culture - Preliminary Gram Neg Bacilli 09/26/16 16:53 Blood Blood Culture - Preliminary Assessment and Plan (1) Ulcer of lower extremity with fat layer exposed Narrative/Plan: This 61-year-old gentleman has a plethora of medical illness including some difficulty with anxiety and resultant aggressive behavior. Currently he is calm and comfortable. He is having difficulty with open ulceration to the left leg is noted. Please see the nursing photography regarding the left leg ulceration. The plan for now will be to utilize Santyl to gently debrided the area. He has no desire to follow the wound healing center because a redo debridement which he finds to be uncomfortable. We also suggest compression therapy which she does not tolerate. He has however utilizing his lymphedema pumps at home every other day for about an hour. This suggests that he uses this on a daily basis instead of every other day. This may help. Continue with his diuresis. There is evidence as noted the positive blood cultures are gram-negative bacilli. Antibiotic therapy with ceftazidime as prescribed. A rash occurred. This has now been changed to Azactam. The Benadryl resolved the rash. The patient is very discontented as noted with control of this pain. This is referred back to the primary care physician. X-ray of the left leg feels reveal evidence of osteomyelitis. He is complaining of hip pain. X-rays been requested of the hip. Antibiotic therapy continues. Follow blood cultures and further testing including sed rate and CRP are requested. The patient may require outpatient intravenous antibiotic therapy at the [facility] care facility. Once second blood cultures will need IV access. Status: Acute (2) Gram-negative bacteremia Status: Acute (3) Pain in left leg Status: Acute
--- NOTE | 2016-09-28 19:56 | XR ---
EXAMINATION TYPE: XR femur LT DATE OF EXAM: 09/28/2016 COMPARISON: 09/26/2016, 08/26/2016, and the HISTORY: 61-year-old male with pain TECHNIQUE: 2 views FINDINGS: There is diffuse osteopenia limiting assessment. Slight asymmetric wear of the polyethylene liner at the hip replacement. Possible focus of soft tissue along the lateral thigh. Extensive heterotopic ossification about the l eft hip. The left hip total arthroplasty appears relatively stable with fragmentation cerclage wire f ibers and bone loss along the lateral aspect of the proximal femoral stem, similar to 08/26/2016. Sideplate and screw fixation of a transverse fracture at the tip of the femoral stem. Healing here ap pears incomplete. Multiple cerclage wires are present. Additional sideplate and screw fixation of a c hronic healed fracture deformity of the distal third femoral shaft similar to prior. Underlying degenerative changes at the left knee. IMPRESSION: 1. Chronic appearing bone loss along the lateral upper aspect of the femoral stem component. 2. Possible focus of soft tissue gas in the lateral upper thigh. Correlate for any signs/symptoms of underlying infection. Assessment with inflammatory markers such as CRP and ESR may be helpful. 3. Suspect nonunion at the previous periprosthetic fracture along the femoral mid shaft. Alignment is unchanged. 4. Asymmetric wear of the hip replacement polyethylene liner.
[2016-09-29] MEDS: HYDROmorphone 1 MG/ML 1 ML SYRINGE IV PRN (01:49)
[2016-09-29] MEDS: HYDROcodone/APAP 10-325MG 1 EACH TAB PO PRN ×5 (05:05→23:03)
[2016-09-29] MEDS: FUROSEMIDE 80 MG TAB PO SCH ×2 (05:05→17:00)
[2016-09-29] MEDS: MAG HYDROX/AL HYDROX/SIMETH 30 ML CUP PO PRN (05:09)
[2016-09-29] MEDS: diphenhydrAMINE 50 MG/ML 1 ML VIAL IVP SCH (08:01)
[2016-09-29] MEDS: FAMOTIDINE 20 MG TAB PO SCH ×2 (08:30→20:09)
[2016-09-29] MEDS: POTASSIUM CHLORIDE ER 20 MEQ TAB.ER PO SCH ×3 (08:30→12:29)
[2016-09-29] MEDS: ACETAMINOPHEN TAB 325 MG TAB PO PRN ×3 (08:30→23:05)
[2016-09-29] MEDS: AZTREONAM 2 GM in SODIUM CHLORIDE 0.9% 100 ML IVPB SCH ×2 (08:31→17:00)
[2016-09-29 08:42] LABS: CH 33.8; CHCM 32.1; HCT 43.8 % (39.0-53.0); HDW 2.56; HGB 14.1 gm/dL (13.0-17.5); MCHC 32.1 g/dL (31.0-37.0); MCV 105.8 fL (80.0-100.0); Macrocytosis Slight; Mean Platelet Volume 7.1; RBC 4.14 m/uL (4.30-5.90); RDW 12.9 % (11.5-15.5)
[2016-09-29 09:00] LABS: Anion Gap 11 mmol/L; Blood Urea Nitrogen 9 mg/dL (9-20); Calcium 8.5 mg/dL (8.4-10.2); Carbon Dioxide 26 mmol/L (22-30); Chloride 100 mmol/L (98-107); Glucose 103 mg/dL (74-99); Non-African American GFR(MDRD) >60 (>60 ml/min/1.73 sqM); Potassium 3.4 mmol/L (3.5-5.1); Sodium 137 mmol/L (137-145)
[2016-09-29] MEDS ORDERED: Potassium Replacement Protocol 1 EACH MISC MISCELLANE PRN (09:54)
--- NOTE | 2016-09-29 10:55 | P.PN ---
Subjective 61-year-old admitted for sepsis secondary to venous stasis ulcers in the left lower limb. Patient appears to be depressed but declining to take any medications for depression. Although patient denied any suicidal ideation at this point of time. 09/29/2016 No overnight events patient is bacteremic with positive blood cultures with gram -negative bacilli possible source of infection being left leg wound. Patient has Pseudomonas, group B enterococcus and MRSA in the wound. Pseudomonas is resistant to azetreonam am will let Dr. Kilgore aware of these findings. Patient may need coverage for MRSA as well. Patient is comparing of pain in the left leg where he has ulcer. Patient is on appropriate pain management regimen at this point of time. And patient denied any fevers, chills, nausea, vomiting, abdominal pain Objective - Vital Signs Vital signs: Vital Signs Temp 99.7 F H 09/29/16 07:00 Pulse 100 09/29/16 07:00 Resp 18 09/29/16 07:00 BP 128/61 09/29/16 07:00 Pulse Ox 92 L 09/29/16 07:00 Intake & Output 09/28/16 09/29/16 09/29/16 18:59 06:59 18:59 Intake Total 500 Output Total 2450 1650 1000 Balance -2450 -1150 -1000 Intake: Oral 500 Output: Urine 2450 1650 1000 Other: Voiding Method Urinal Urinal Urinal # Voids 1 - Exam PHYSICAL EXAMINATION: GENERAL: The patient is alert and oriented x3, not in any acute distress. Well developed, well nourished. HEENT: Pupils are round and equally reacting to light. EOMI. No scleral icterus. No conjunctival pallor. Normocephalic, atraumatic. No pharyngeal erythema. No thyromegaly. CARDIOVASCULAR: S1 and S2 present. No murmurs, rubs, or gallops. PULMONARY: Chest is clear to auscultation, no wheezing or crackles. ABDOMEN: Soft, nontender, nondistended, normoactive bowel sounds. No palpable organomegaly. MUSCULOSKELETAL: No joint swelling or deformity. EXTREMITIES: No cyanosis, clubbing, HEENT has bilateral pedal edema chronic venous stasis and left lower leg there may be cellulitis of the left leg extending involving the whole left leg. Patient has a large ulcer on the posterior aspect of the leg stage III ulcer. No obvious exposed bone with surrounding cellulitis I didn't see any pus pockets. NEUROLOGICAL: Gross neurological examination did not reveal any focal deficits. SKIN: No rashes. - Labs CBC & Chem 7: 09/29/16 07:57 09/29/16 07:57 Labs: Abnormal Lab Results - Last 24 Hours (Table) 09/29/16 09/29/16 Range/Units 07:57 07:57 WBC 17.0 H (3.8-10.6) k/uL RBC 4.14 L (4.30-5.90) m/uL MCV 105.8 H (80.0-100.0) fL Potassium 3.4 L (3.5-5.1) mmol/L Creatinine 0.45 L (0.66-1.25) mg/dL Glucose 103 H (74-99) mg/dL Microbiology - Last 24 Hours (Table) 09/26/16 16:53 Blood Culture Gram Stain - Final Blood Blood Culture - Final Escherichia coli 09/27/16 10:23 Blood Culture Gram Stain - Preliminary Blood Blood Culture - Preliminary Gram Neg Bacilli 09/26/16 16:53 Gram Stain - Preliminary Leg - Left Wound Culture - Preliminary Pseudomonas fluorescens/putida Group D Enterococcus Presumptive MRSA 09/27/16 10:45 Blood Culture - Preliminary Blood No Growth after 24 hours Assessment and Plan Plan: 1 sepsis and bacteremia with gram-negative rods and group D enterococcus, pseudomonas resistant to present antibiotic and MRSA on the wound cultures repeat blood cultures for today and tomorrow morning will be obtained Possible source of infection being the left lower limb ulcer with cellulitis. Patient was switched days it here I am. Infectious disease is following the patient. #2 morbid obesity #3 bilateral chronic venous stasis with chronic venous stasis dermatosis. #4 chronic pain syndrome with narcotic dependence. #5 rheumatoid arthritis history. #6 coronary artery disease For above-mentioned chronic medical problems I'll continue his home medications.
[2016-09-29] MEDS: MULTIVITAMINS, THERA 1 EACH TAB PO SCH (11:15)
[2016-09-29] MEDS: COLLAGENASE 250 UNIT/GM OINTMENT 30 GM TUBE TOPICAL SCH (12:30)
[2016-09-29] MEDS ORDERED: IV VANCOMYCIN PER PHARMACY 1 EACH MISC MISCELLANE PRN (15:30)
[2016-09-29] MEDS: diphenhydrAMINE 25 MG CAP PO PRN (18:35)
[2016-09-29] MEDS: VANCOMYCIN 2,500 MG in SODIUM CHLORIDE 0.9% 500 ML IVPB SCH (20:08)
[2016-09-30] MEDS: AZTREONAM 2 GM in SODIUM CHLORIDE 0.9% 100 ML IVPB SCH ×3 (00:15→16:36)
[2016-09-30] MEDS: MAG HYDROX/AL HYDROX/SIMETH 30 ML CUP PO PRN (00:33)
[2016-09-30] MEDS: HYDROcodone/APAP 10-325MG 1 EACH TAB PO PRN ×3 (05:21→18:08)
[2016-09-30] MEDS: FUROSEMIDE 80 MG TAB PO SCH ×2 (05:22→18:08)
[2016-09-30] MEDS: VANCOMYCIN 2,500 MG in SODIUM CHLORIDE 0.9% 500 ML IVPB SCH ×2 (05:22→19:47)
[2016-09-30 08:48] LABS: CH 34.7; CHCM 32.2; HCT 47.7 % (39.0-53.0); HDW 2.53; HGB 14.8 gm/dL (13.0-17.5); MCH 33.6 pg (25.0-35.0); MCV 108.4 fL (80.0-100.0); Macrocytosis Moderate; Mean Platelet Volume 7.3; RDW 14.1 % (11.5-15.5)
[2016-09-30 09:11] LABS: Anion Gap 11 mmol/L; Blood Urea Nitrogen 10 mg/dL (9-20); Calcium 8.5 mg/dL (8.4-10.2); Carbon Dioxide 29 mmol/L (22-30); Chloride 98 mmol/L (98-107); Glucose 125 mg/dL (74-99); Non-African American GFR(MDRD) >60 (>60 ml/min/1.73 sqM); Potassium 3.4 mmol/L (3.5-5.1); Sodium 138 mmol/L (137-145)
[2016-09-30] MEDS: COLLAGENASE 250 UNIT/GM OINTMENT 30 GM TUBE TOPICAL SCH (11:02)
[2016-09-30] MEDS: POTASSIUM CHLORIDE ER 20 MEQ TAB.ER PO SCH ×4 (11:02→22:53)
[2016-09-30] MEDS: FAMOTIDINE 20 MG TAB PO SCH ×2 (11:02→21:53)
[2016-09-30] MEDS: ACETAMINOPHEN TAB 325 MG TAB PO PRN (11:55)
[2016-09-30] MEDS: MULTIVITAMINS, THERA 1 EACH TAB PO SCH (11:55)
[2016-09-30] MEDS: BACLOFEN 10 MG TAB PO PRN ×2 (12:56→21:54)
[2016-09-30] MEDS ORDERED: Potassium Replacement Protocol 1 EACH MISC MISCELLANE PRN ×2 (15:56→22:21)
[2016-09-30] MEDS: IBUPROFEN 600 MG TAB PO PRN ×2 (16:50→21:54)
[2016-09-30 20:35] LABS: Anion Gap 8 mmol/L; Blood Urea Nitrogen 15 mg/dL (9-20); Calcium 8.4 mg/dL (8.4-10.2); Carbon Dioxide 30 mmol/L (22-30); Chloride 100 mmol/L (98-107); Glucose 112 mg/dL (74-99); Non-African American GFR(MDRD) >60 (>60 ml/min/1.73 sqM); Potassium 3.4 mmol/L (3.5-5.1); Sodium 138 mmol/L (137-145)
[2016-09-30] MEDS: diphenhydrAMINE 25 MG CAP PO PRN (21:53)
--- NOTE | 2016-09-30 22:00 | P.PN ---
Subjective Principal diagnosis: Cellulitis, failed outpatient treatment This is a 61-year-old male patient who is known to infectious disease services due to venous stasis ulcers to the left lower extremity and has been treated for osteomyelitis in the past requiring IV antibiotics and patient was placed at [facility] for treatment, he has been a Wound Healing patient in the past most recently this was in 2015 and appears his last visit there was 2015. Subsequently, in September 2015, the patient had an acute fracture of the proximal femur at the lower end of the hip prosthesis. Patient was then transferred to [facility] where Dr. rubio performed surgery. Patient states he is now living at home by himself with homecare nurse in place and a highway maintenance worker. He is mostly wheelchair bound but does use crutches and walker for minimal ambulation. Patient gives history that he presented to [facility] emergency center on August 26 [address] was [address] Fields and placed on Bactrim and Augmentin. He states he was given 3 courses of 10 days of antibiotics and has been taking them as instructed. He states on September 21 he developed chills, sweats and pain to his left lower extremity and thought the leg infection was getting worse. He was going to come in on Friday but he was too tired and ended up coming in yesterday. Tib-fib x-ray showed no acute fracture. He was started on vancomycin and admitted to the [facility] floor. His temperature maximum 100.7 and white count of 17. Blood cultures showing gram-negative rods. Patient is complaining of a rash and hives on his arms and abdomen and states this started on Friday. He states he has had decreased appetite with nausea but no vomiting or diarrhea. He denies any dysuria. He does state he has had decreased urinary output but did not take his Lasix yesterday and urine has been dark in color. Regarding local wound care, patient states that he has zinc oxide put on his leg and then wrapped. His home care nurse does this or his highway maintenance worker. He does have history of rheumatoid arthritis and is only on Motrin, baclofen and Anson. He follows with Dr. Emmanuel for pain management. Patient is an active smoker and trying to quit, currently down to less than half a pack per day. Patient much improved today. Much less pain. Although still having pain. It is better controlled. He is updated on the results of his left femur x-ray that shows evidence of ongoing nonunion but no stuffy and separation of the bone structure. No other new acute fracture is seen. Osteopenia is seen. Objective - Vital Signs Vital signs: Vital Signs Temp 99.5 F 09/30/16 15:00 Pulse 94 09/30/16 15:00 Resp 18 09/30/16 15:00 BP 118/65 09/30/16 15:00 Pulse Ox 92 L 09/30/16 15:00 Intake & Output 09/30/16 09/30/16 10/01/16 06:59 18:59 06:59 Intake Total 1100 Output Total 1700 1500 Balance -600 -1500 Intake: Oral 1100 Output: Urine 1700 1500 Other: Voiding Method Urinal Urinal # Voids 1 3 - Exam Gen: This is a morbidly obese 61-year-old male. He is sitting up in bed and appears uncomfortable and continues to have a very negative attitude. HEENT: Head is atraumatic, normocephalic. Pupils equal, round. Sclerae is anicteric. Conjunctiva pink. Mucous members of the mouth are moist. Patient is edentulous. No thrush noted. NECK: Short and thick. Supple. No JVD. No lymphadenopathy. No thyromegaly. LUNGS: Clear to auscultation. No wheezes or rhonchi. No intercostal retractions. HEART: Regular rate and rhythm. No murmur. ABDOMEN: Morbidly obese Soft. Bowel sounds are present. No masses. No tenderness. No redness under abdominal folds. EXTREMITIES: There is left lower extremity edema and erythema. Ulcerations of the left leg. Please see nursing photography. It is tender. In complaints of pain ascending the left leg also. Dorsalis pedis is +2 bilaterally. NEUROLOGICAL: Patient is awake, alert and oriented x3. - Labs CBC & Chem 7: 09/30/16 08:12 09/30/16 20:15 Labs: Abnormal Lab Results - Last 24 Hours (Table) 09/30/16 09/30/16 09/30/16 Range/Units 08:12 08:12 08:12 WBC 19.0 H (3.8-10.6) k/uL MCV 108.4 H (80.0-100.0) fL ESR 69 H (0-15) mm/hr Potassium 3.4 L (3.5-5.1) mmol/L Creatinine 0.45 L (0.66-1.25) mg/dL Glucose 125 H (74-99) mg/dL C-Reactive Protein (<10.0) mg/L 09/30/16 09/30/16 Range/Units 08:12 20:15 WBC (3.8-10.6) k/uL MCV (80.0-100.0) fL ESR (0-15) mm/hr Potassium 3.4 L (3.5-5.1) mmol/L Creatinine 0.59 L (0.66-1.25) mg/dL Glucose 112 H (74-99) mg/dL C-Reactive Protein 362.8 H (<10.0) mg/L Microbiology - Last 24 Hours (Table) 09/29/16 11:27 Blood Culture - Preliminary Blood No Growth after 24 hours 09/27/16 10:45 Blood Culture - Preliminary Blood No Growth after 72 hours 09/28/16 10:56 Blood Culture - Preliminary Blood No Growth after 48 hours 09/28/16 10:34 Blood Culture - Preliminary Blood No Growth after 48 hours 09/27/16 10:23 Blood Culture Gram Stain - Final Blood Blood Culture - Final Escherichia coli 09/26/16 16:53 Gram Stain - Final Leg - Left Wound Culture - Final Pseudomonas fluorescens/putida Enterococcus faecalis Methicillin resist S. aureus Laboratory Results WBC 19.0 k/uL (3.8-10.6) H 09/30/16 08:12 RBC 4.40 m/uL (4.30-5.90) 09/30/16 08:12 Hgb 14.8 gm/dL (13.0-17.5) 09/30/16 08:12 Hct 47.7 % (39.0-53.0) 09/30/16 08:12 MCV 108.4 fL (80.0-100.0) H 09/30/16 08:12 MCH 33.6 pg (25.0-35.0) 09/30/16 08:12 MCHC 31.0 g/dL (31.0-37.0) 09/30/16 08:12 RDW 14.1 % (11.5-15.5) 09/30/16 08:12 Plt Count 348 k/uL (150-450) 09/30/16 08:12 Neutrophils % 89 % 09/27/16 08:07 Lymphocytes % 5 % 09/27/16 08:07 Monocytes % 3 % 09/27/16 08:07 Eosinophils % 1 % 09/27/16 08:07 Basophils % 0 % 09/27/16 08:07 Neutrophils # 12.5 k/uL (1.3-7.7) H 09/27/16 08:07 Lymphocytes # 0.7 k/uL (1.0-4.8) L 09/27/16 08:07 Monocytes # 0.5 k/uL (0-1.0) 09/27/16 08:07 Eosinophils # 0.1 k/uL (0-0.7) 09/27/16 08:07 Basophils # 0.0 k/uL (0-0.2) 09/27/16 08:07 Macrocytosis Moderate 09/30/16 08:12 ESR 69 mm/hr (0-15) H 09/30/16 08:12 Sodium 138 mmol/L (137-145) 09/30/16 20:15 Potassium 3.4 mmol/L (3.5-5.1) L 09/30/16 20:15 Chloride 100 mmol/L (98-107) 09/30/16 20:15 Carbon Dioxide 30 mmol/L (22-30) 09/30/16 20:15 Anion Gap 8 mmol/L 09/30/16 20:15 BUN 15 mg/dL (9-20) 09/30/16 20:15 Creatinine 0.59 mg/dL (0.66-1.25) L 09/30/16 20:15 Est GFR (MDRD) Af Amer >60 (>60 ml/min/1.73 sqM) 09/30/16 20:15 Est GFR (MDRD) Non-Af >60 (>60 ml/min/1.73 sqM) 09/30/16 20:15 Glucose 112 mg/dL (74-99) H 09/30/16 20:15 POC Glucose (mg/dL) 117 mg/dL (75-99) H 09/26/16 20:34 POC Glu Firer Low Pressure Guera Reyes 09/26/16 20:34 Plasma Lactic Acid Darryl 0.8 mmol/L (0.7-2.0) 09/30/16 00:29 Calcium 8.4 mg/dL (8.4-10.2) 09/30/16 20:15 Total Bilirubin 0.6 mg/dL (0.2-1.3) 09/27/16 08:00 AST 24 U/L (17-59) 09/27/16 08:00 ALT 41 U/L (21-72) 09/27/16 08:00 Alkaline Phosphatase 143 U/L (38-126) H 09/27/16 08:00 C-Reactive Protein 362.8 mg/L (<10.0) H 09/30/16 08:12 Total Protein 5.2 g/dL (6.3-8.2) L 09/27/16 08:00 Albumin 2.8 g/dL (3.5-5.0) L 09/27/16 08:00 Vitamin B12 669 pg/mL (239-931) 09/29/16 07:57 Microbiology 09/29/16 11:27 Blood Blood Culture - Preliminary No Growth after 24 hours 09/27/16 10:45 Blood Blood Culture - Preliminary No Growth after 72 hours 09/28/16 10:56 Blood Blood Culture - Preliminary No Growth after 48 hours 09/28/16 10:34 Blood Blood Culture - Preliminary No Growth after 48 hours 09/27/16 10:23 Blood Blood Culture Gram Stain - Final 09/27/16 10:23 Blood Blood Culture - Final Escherichia coli 09/26/16 16:53 Leg - Left Gram Stain - Final 09/26/16 16:53 Leg - Left Wound Culture - Final Pseudomonas fluorescens/putida Enterococcus faecalis Methicillin resist S. aureus 09/26/16 16:53 Blood Blood Culture Gram Stain - Final 09/26/16 16:53 Blood Blood Culture - Final Escherichia coli 09/27/16 10:23 Blood Blood Culture - Final 09/26/16 16:53 Blood Blood Culture - Preliminary Assessment and Plan (1) Ulcer of lower extremity with fat layer exposed Narrative/Plan: This 61-year-old gentleman has a plethora of medical illness including some difficulty with anxiety and resultant aggressive behavior. Currently he is calm and comfortable. He is having difficulty with open ulceration to the left leg is noted. Please see the nursing photography regarding the left leg ulceration. The plan for now will be to utilize Santyl to gently debrided the area. He has no desire to follow the wound healing center because a redo debridement which he finds to be uncomfortable. We also suggest compression therapy which she does not tolerate. He has however utilizing his lymphedema pumps at home every other day for about an hour. This suggests that he uses this on a daily basis instead of every other day. This may help. Continue with his diuresis. There is evidence as noted the positive blood cultures are gram-negative bacilli. Antibiotic therapy with ceftazidime as prescribed. A rash occurred. This has now been changed to Azactam. The Benadryl resolved the rash. Mariano is much more content today. Pain control is better.. X-ray of the left leg distal without evidence of osteomyelitis. He is complaining of hip pain. Pain is not new related to the leg fracture. In the nonhealing bone. He has noted x-ray does show evidence of the chronic nonunion but improved bony structure. No new fracture Antibiotic therapy continues. Follow blood cultures and further testing including sed rate and CRP are requested. The patient may require outpatient intravenous antibiotic therapy at the extended care facility. Once second blood cultures will need IV access. Azactam and vancomycin will be planned when he has to the extended care facility. Status: Acute (2) Gram-negative bacteremia Status: Acute (3) Pain in left leg Status: Acute
[2016-10-01] MEDS: HYDROcodone/APAP 10-325MG 1 EACH TAB PO PRN ×5 (00:13→23:13)
[2016-10-01] MEDS: POTASSIUM CHLORIDE ER 20 MEQ TAB.ER PO SCH ×2 (00:14→08:15)
[2016-10-01] MEDS: AZTREONAM 2 GM in SODIUM CHLORIDE 0.9% 100 ML IVPB SCH ×4 (00:14→23:13)
[2016-10-01] MEDS: MAG HYDROX/AL HYDROX/SIMETH 30 ML CUP PO PRN (00:28)
--- NOTE | 2016-10-01 00:34 | P.PN ---
Subjective Principal diagnosis: Left leg wound infection 61-year-old admitted for sepsis secondary to venous stasis ulcers in the left lower limb. Patient appears to be depressed but declining to take any medications for depression. Although patient denied any suicidal ideation at this point of time. 09/29/2016 No overnight events patient is bacteremic with positive blood cultures with gram -negative bacilli possible source of infection being left leg wound. Patient has Pseudomonas, group B enterococcus and MRSA in the wound. Pseudomonas is resistant to azetreonam am will let Dr. Kilgore aware of these findings. Patient may need coverage for MRSA as well. Patient is comparing of pain in the left leg where he has ulcer. Patient is on appropriate pain management regimen at this point of time. And patient denied any fevers, chills, nausea, vomiting, abdominal pain 09/30/2016 Patient says that his left leg pain improved. Patient wants to know the results of left femur x-ray. left femur x-ray that shows evidence of ongoing nonunion but no stuffy and separation of the bone structure. Otherwise patient is afebrile. Denied any nausea vomiting or abdominal pain no chest pain and short of breath. Objective - Vital Signs Vital signs: Vital Signs Temp 99.5 F 09/30/16 15:00 Pulse 94 09/30/16 15:00 Resp 18 09/30/16 15:00 BP 118/65 09/30/16 15:00 Pulse Ox 92 L 09/30/16 15:00 Intake & Output 09/30/16 09/30/16 10/01/16 06:59 18:59 06:59 Intake Total 1100 Output Total 1700 1500 Balance -600 -1500 Intake: Oral 1100 Output: Urine 1700 1500 Other: Voiding Method Urinal Urinal # Voids 1 3 - Exam GENERAL: The patient is alert and oriented x3, not in any acute distress. Well developed, well nourished. HEENT: Pupils are round and equally reacting to light. EOMI. No scleral icterus. No conjunctival pallor. Normocephalic, atraumatic. No pharyngeal erythema. No thyromegaly. CARDIOVASCULAR: S1 and S2 present. No murmurs, rubs, or gallops. PULMONARY: Chest is clear to auscultation, no wheezing or crackles. ABDOMEN: Soft, nontender, nondistended, normoactive bowel sounds. No palpable organomegaly. MUSCULOSKELETAL: No joint swelling or deformity. EXTREMITIES: No cyanosis, clubbing, HEENT has bilateral pedal edema chronic venous stasis and left lower leg there may be cellulitis of the left leg extending involving the whole left leg. Patient has a large ulcer on the posterior aspect of the leg calf stage III ulcer. No obvious exposed bone with surrounding cellulitis I didn't see any pus pockets. NEUROLOGICAL: Gross neurological examination did not reveal any focal deficits. SKIN: No rashes. - Labs CBC & Chem 7: 09/30/16 08:12 09/30/16 20:15 Labs: Abnormal Lab Results - Last 24 Hours (Table) 09/30/16 09/30/16 09/30/16 Range/Units 08:12 08: 08:12 WBC 19.0 H (3.8-10.6) k/uL MCV 108.4 H (80.0-100.0) fL ESR 69 H (0-15) mm/hr Potassium 3.4 L (3.5-5.1) mmol/L Creatinine 0.45 L (0.66-1.25) mg/dL Glucose 125 H (74-99) mg/dL C-Reactive Protein (<10.0) mg/L 09/30/16 09/30/16 Range/Units 08:12 20:15 WBC (3.8-10.6) k/uL MCV (80.0-100.0) fL ESR (0-15) mm/hr Potassium 3.4 L (3.5-5.1) mmol/L Creatinine 0.59 L (0.66-1.25) mg/dL Glucose 112 H (74-99) mg/dL C-Reactive Protein 362.8 H (<10.0) mg/L Microbiology - Last 24 Hours (Table) 09/29/16 11:27 Blood Culture - Preliminary Blood No Growth after 24 hours 09/27/16 10:45 Blood Culture - Preliminary Blood No Growth after 72 hours 09/28/16 10:56 Blood Culture - Preliminary Blood No Growth after 48 hours 09/28/16 10:34 Blood Culture - Preliminary Blood No Growth after 48 hours 09/27/16 10:23 Blood Culture Gram Stain - Final Blood Blood Culture - Final Escherichia coli 09/26/16 16:53 Gram Stain - Final Leg - Left Wound Culture - Final Pseudomonas fluorescens/putida Enterococcus faecalis Methicillin resist S. aureus Assessment and Plan Plan: 1 sepsis secondary to bacteremia with E. coli and wound infection with group D enterococcus, pseudomonas resistant to present antibiotic and MRSA on the wound cultures. repeat blood cultures showed no growth. Possible source of infection being the left lower limb ulcer with cellulitis. Infectious disease is following the patient. #2 morbid obesity #3 bilateral chronic venous stasis with chronic venous stasis dermatosis. #4 chronic pain syndrome with narcotic dependence. #5 rheumatoid arthritis history. #6 coronary artery disease For above-mentioned chronic medical problems I'll continue his home medications.
[2016-10-01] MEDS: FUROSEMIDE 80 MG TAB PO SCH ×2 (06:06→17:32)
[2016-10-01] MEDS: VANCOMYCIN 2,500 MG in SODIUM CHLORIDE 0.9% 500 ML IVPB SCH ×2 (06:06→17:31)
[2016-10-01] MEDS: IBUPROFEN 600 MG TAB PO PRN ×4 (06:10→23:14)
[2016-10-01] MEDS: BACLOFEN 10 MG TAB PO PRN ×2 (06:10→13:20)
[2016-10-01] MEDS: FAMOTIDINE 20 MG TAB PO SCH ×2 (08:15→21:25)
[2016-10-01 09:54] LABS: Anion Gap 8 mmol/L; Blood Urea Nitrogen 12 mg/dL (9-20); Calcium 8.5 mg/dL (8.4-10.2); Carbon Dioxide 28 mmol/L (22-30); Chloride 103 mmol/L (98-107); Glucose 114 mg/dL (74-99); Non-African American GFR(MDRD) >60 (>60 ml/min/1.73 sqM); Potassium 3.9 mmol/L (3.5-5.1); Sodium 139 mmol/L (137-145)
[2016-10-01 09:58] LABS: Basophils % (A) 0 %; CH 33.5; CHCM 31.3; Eosinophils # (A) 0.2 k/uL (0-0.7); Eosinophils % (A) 1 %; HCT 44.6 % (39.0-53.0); HDW 2.48; HGB 14.2 gm/dL (13.0-17.5); Luc % (Auto) 1; Lymphocytes # (A) 0.9 k/uL (1.0-4.8); Lymphocytes % (A) 6 %; MCH 34.3 pg (25.0-35.0); MCHC 31.8 g/dL (31.0-37.0); MCV 107.8 fL (80.0-100.0); Macrocytosis Moderate; Mean Platelet Volume 7.1; Monocytes # (A) 0.5 k/uL (0-1.0); Monocytes % (A) 3 %; Neutrophils # (A) 13.4 k/uL (1.3-7.7); Neutrophils % (A) 88 %; RBC 4.14 m/uL (4.30-5.90); RDW 13.3 % (11.5-15.5); WBC 15.1 k/uL (3.8-10.6); WBC (Perox) 15.55
[2016-10-01] MEDS: MULTIVITAMINS, THERA 1 EACH TAB PO SCH (12:16)
[2016-10-01] MEDS ORDERED: ALPRAZolam 0.5 MG TAB PO PRN (14:22)
[2016-10-01] MEDS ORDERED: LORazepam 2 MG/ML SYRINGE IV PRN (14:28)
[2016-10-01] MEDS ORDERED: LIDOCAINE 2% INJ 20 MG/ML SQ ONE (16:50)
--- NOTE | 2016-10-01 17:12 | XR ---
EXAMINATION TYPE: XR chest 1V confirm line [facility] DATE OF EXAM: 10/01/2016 COMPARISON: 09/25/2015 HISTORY: PICC line placement TECHNIQUE: Single frontal view of the chest is obtained. FINDINGS: There is a left-sided PICC line catheter with the tip in good position in the superior raghavendra a cava. There is no pneumothorax. Lungs are clear of consolidation. There is no heart failure. IMPRESSION: Catheter appears in good position.
[2016-10-01] MEDS: COLLAGENASE 250 UNIT/GM OINTMENT 30 GM TUBE TOPICAL SCH (17:30)
[2016-10-01] MEDS: BACLOFEN 10 MG TAB PO SCH ×2 (17:31→21:25)
[2016-10-01] MEDS: ACETAMINOPHEN TAB 325 MG TAB PO PRN (21:25)
--- NOTE | 2016-10-02 00:25 | P.PN ---
Subjective Principal diagnosis: Left leg wound infection 61-year-old admitted for sepsis secondary to venous stasis ulcers in the left lower limb. Patient appears to be depressed but declining to take any medications for depression. Although patient denied any suicidal ideation at this point of time. 09/29/2016 No overnight events patient is bacteremic with positive blood cultures with gram -negative bacilli possible source of infection being left leg wound. Patient has Pseudomonas, group B enterococcus and MRSA in the wound. Pseudomonas is resistant to azetreonam am will let Dr. Kilgore aware of these findings. Patient may need coverage for MRSA as well. Patient is comparing of pain in the left leg where he has ulcer. Patient is on appropriate pain management regimen at this point of time. And patient denied any fevers, chills, nausea, vomiting, abdominal pain 09/30/2016 Patient says that his left leg pain improved. Patient wants to know the results of left femur x-ray. left femur x-ray that shows evidence of ongoing nonunion but no stuffy and separation of the bone structure. Otherwise patient is afebrile. Denied any nausea vomiting or abdominal pain no chest pain and short of breath. 10/01/2016 Patient denied any new complaints. Pain is controlled with pain medications. ID is chronic for IV antibiotics in the form of aztreonam and vancomycin. PICC line to be placed today Objective - Vital Signs Vital signs: Vital Signs Temp 97.0 F L 10/01/16 15:00 Pulse 85 10/01/16 15:00 Resp 18 10/01/16 15:00 BP 126/69 10/01/16 15:00 Pulse Ox 93 L 10/01/16 15:00 Intake & Output 10/01/16 10/01/16 10/02/16 06:59 18:59 06:59 Output Total 600 300 Balance -600 -300 Weight 159 kg Output: Urine 600 300 Other: Voiding Method Urinal - Exam GENERAL: The patient is alert and oriented x3, not in any acute distress. Well developed, well nourished. HEENT: Pupils are round and equally reacting to light. EOMI. No scleral icterus. No conjunctival pallor. Normocephalic, atraumatic. No pharyngeal erythema. No thyromegaly. CARDIOVASCULAR: S1 and S2 present. No murmurs, rubs, or gallops. PULMONARY: Chest is clear to auscultation, no wheezing or crackles. ABDOMEN: Soft, nontender, nondistended, normoactive bowel sounds. No palpable organomegaly. MUSCULOSKELETAL: No joint swelling or deformity. EXTREMITIES: No cyanosis, clubbing, HEENT has bilateral pedal edema chronic venous stasis and left lower leg there may be cellulitis of the left leg extending involving the whole left leg. Patient has a large ulcer on the posterior aspect of the leg calf stage III ulcer. No obvious exposed bone with surrounding cellulitis I didn't see any pus pockets. NEUROLOGICAL: Gross neurological examination did not reveal any focal deficits. SKIN: No rashes. - Labs CBC & Chem 7: 10/01/16 08:52 10/01/16 08:52 Labs: Abnormal Lab Results - Last 24 Hours (Table) 10/01/16 10/01/16 Range/Units 08:52 08:52 WBC 15.1 H (3.8-10.6) k/uL RBC 4.14 L (4.30-5.90) m/uL MCV 107.8 H (80.0-100.0) fL Neutrophils # 13.4 H (1.3-7.7) k/uL Lymphocytes # 0.9 L (1.0-4.8) k/uL Creatinine 0.44 L (0.66-1.25) mg/dL Glucose 114 H (74-99) mg/dL Microbiology - Last 24 Hours (Table) 09/29/16 11:27 Blood Culture - Preliminary Blood No Growth after 48 hours 09/27/16 10:45 Blood Culture - Preliminary Blood No Growth after 96 hours 09/28/16 10:56 Blood Culture - Preliminary Blood No Growth after 72 hours 09/28/16 10:34 Blood Culture - Preliminary Blood No Growth after 72 hours 09/30/16 08:12 Blood Culture - Preliminary Blood No Growth after 24 hours Assessment and Plan Plan: 1 sepsis secondary to bacteremia with E. coli and wound infection with group D enterococcus, pseudomonas resistant to present antibiotic and MRSA on the wound cultures. repeat blood cultures showed no growth. Possible source of infection being the left lower limb ulcer with cellulitis. Infectious disease is following the patient. PICC line is being presented today for IV antibiotics at home #2 morbid obesity #3 bilateral chronic venous stasis with chronic venous stasis dermatosis. #4 chronic pain syndrome with narcotic dependence. #5 rheumatoid arthritis history. #6 coronary artery disease For above-mentioned chronic medical problems I'll continue his home medications.
[2016-10-02] MEDS: VANCOMYCIN 2,500 MG in SODIUM CHLORIDE 0.9% 500 ML IVPB SCH ×2 (05:33→17:26)
[2016-10-02] MEDS: FUROSEMIDE 80 MG TAB PO SCH ×2 (05:33→17:25)
[2016-10-02] MEDS: IBUPROFEN 600 MG TAB PO PRN ×3 (05:33→19:27)
[2016-10-02] MEDS: HYDROcodone/APAP 10-325MG 1 EACH TAB PO PRN ×3 (05:33→19:26)
[2016-10-02] MEDS: FAMOTIDINE 20 MG TAB PO SCH (08:32)
[2016-10-02] MEDS: BACLOFEN 10 MG TAB PO SCH ×3 (08:33→17:26)
[2016-10-02] MEDS: POTASSIUM CHLORIDE ER 20 MEQ TAB.ER PO SCH (08:33)
[2016-10-02] MEDS: MULTIVITAMINS, THERA 1 EACH TAB PO SCH (08:33)
[2016-10-02] MEDS: ACETAMINOPHEN TAB 325 MG TAB PO PRN ×2 (08:37→17:32)
--- NOTE | 2016-10-02 08:50 | IR ---
EXAMINATION TYPE: IR cvc insert >=5 years DATE OF EXAM: 10/01/2016 COMPARISON: NONE HISTORY: Infection, needs long-term intravenous access for antibiotics FINDINGS: Maximal barrier technique was utilized. The skin overlying the left basilic vein was local ized with ultrasound and noted to be compressible and patent by ultrasound. An ultrasound image was obtained and submitted on patient's chart. Sterile technique utilized with the ultrasound machine. Th e skin overlying was prepped and draped and Lidocaine used for local anesthesia. A skin henry was mad e with a scalpel. Access was gained to the vein under direct ultrasound guidance with a 21-gauge nee dle and a 0.018 inch wire was advanced. Access site was dilated with a peel-away sheath and the cath eter tailored to length. Catheter advanced centrally and a post procedure chest x-ray verified place ment with the tip at the cavoatrial junction. Catheter was fixed to the skin with suture and a steri le dressing placed. Hemostasis achieved and the catheter was aspirated and flushed with sterile sali ne. The patient remained in stable condition. IMPRESSION: STATUS POST ULTRASOUND GUIDED PICC LINE PLACEMENT, READY FOR USE. THIS PROCEDURE WAS PER FORMED BY THE UNDERSIGNED.
[2016-10-02] MEDS: AZTREONAM 2 GM in SODIUM CHLORIDE 0.9% 100 ML IVPB SCH ×2 (09:43→14:49)
[2016-10-02 09:49] LABS: Anion Gap 11 mmol/L; Blood Urea Nitrogen 13 mg/dL (9-20); Calcium 8.6 mg/dL (8.4-10.2); Carbon Dioxide 26 mmol/L (22-30); Chloride 102 mmol/L (98-107); Glucose 94 mg/dL (74-99); Non-African American GFR(MDRD) >60 (>60 ml/min/1.73 sqM); Sodium 139 mmol/L (137-145)
[2016-10-02] MEDS: COLLAGENASE 250 UNIT/GM OINTMENT 30 GM TUBE TOPICAL SCH (14:45)
--- NOTE | 2016-10-02 14:49 | P.DS ---
Providers Date of admission: 09/26/16 19:33 Expected date of discharge: 10/02/16 Attending physician: Chidi Tracey Consults: 09/26/16 17:54 Consult Physician Stat Consulting Provider: Oscar Kilgore Reason/Comments: leg wound Do you want consulting provider notified?: Yes Primary care physician: Monica Knight Hospital Course: Discharge diagnosis 1 sepsis secondary to bacteremia with E. coli and wound infection with group D enterococcus, pseudomonas and MRSA on the wound cultures. repeat blood cultures showed no growth. Possible source of infection being the left lower limb ulcer with cellulitis. Infectious disease has seen the patient. Patient was on Augmentin and Bactrim and will be changed to vancomycin and aztreonam as per ID recommendations at rehab PICC line was obtained. #2 morbid obesity #3 bilateral chronic venous stasis with chronic venous stasis dermatosis. #4 chronic pain syndrome with narcotic dependence. #5 rheumatoid arthritis history. #6 coronary artery disease #7 history of left femur with nonhealing fracture 61-year-old admitted for sepsis secondary to venous stasis ulcers in the left lower limb. Patient appears to be depressed but declining to take any medications for depression. Although patient denied any suicidal ideation at this point of time. 09/29/2016 No overnight events patient is bacteremic with positive blood cultures with gram -negative bacilli possible source of infection being left leg wound. Patient has Pseudomonas, group B enterococcus and MRSA in the wound. Pseudomonas is resistant to azetreonam am will let Dr. Kilgore aware of these findings. Patient may need coverage for MRSA as well. Patient is comparing of pain in the left leg where he has ulcer. Patient is on appropriate pain management regimen at this point of time. And patient denied any fevers, chills, nausea, vomiting, abdominal pain 09/30/2016 Patient says that his left leg pain improved. Patient wants to know the results of left femur x-ray. left femur x-ray that shows evidence of ongoing nonunion but no stuffy and separation of the bone structure. Otherwise patient is afebrile. Denied any nausea vomiting or abdominal pain no chest pain and short of breath. 10/01/2016 Patient denied any new complaints. Pain is controlled with pain medications. ID is chronic for IV antibiotics in the form of aztreonam and vancomycin. PICC line to be placed today. 10/02/2016 Patient was seen and examined today Physical examination GENERAL: The patient is alert and oriented x3, not in any acute distress. Well developed, well nourished. HEENT: Pupils are round and equally reacting to light. EOMI. No scleral icterus. No conjunctival pallor. Normocephalic, atraumatic. No pharyngeal erythema. No thyromegaly. CARDIOVASCULAR: S1 and S2 present. No murmurs, rubs, or gallops. PULMONARY: Chest is clear to auscultation, no wheezing or crackles. ABDOMEN: Soft, nontender, nondistended, normoactive bowel sounds. No palpable organomegaly. MUSCULOSKELETAL: No joint swelling or deformity. EXTREMITIES: No cyanosis, clubbing, HEENT has bilateral pedal edema chronic venous stasis and left lower leg there may be cellulitis of the left leg extending involving the whole left leg. Patient has a large ulcer on the posterior aspect of the leg calf stage III ulcer. No obvious exposed bone with surrounding cellulitis I didn't see any pus pockets. NEUROLOGICAL: Gross neurological examination did not reveal any focal deficits. SKIN: No rashes. Patient Condition at Discharge: Stable Plan - Discharge Summary New Discharge Prescriptions: New Aztreonam [Azactam] 2 gm IVPB Q8H #63 vial Vancomycin 2,500 mg IVPB Q12H #42 bag Collagenase [Santyl] 1 applic TOPICAL DAILY dose Continue Ibuprofen [Motrin] 800 mg PO Q8HR PRN PRN Reason: Pain Furosemide [Lasix] 80 mg PO BID Ergocalciferol [Vitamin D2 (DRISDOL)] 50,000 unit PO FR Baclofen [Lioresal] 20 mg PO QID PRN PRN Reason: Pain Potassium Chloride [K-Tab ER] 20 meq PO DAILY Ranitidine HCl [Zantac] 150 mg PO BID Multivitamins, Thera [Multivitamin (formulary)] 1 tab PO DAILY HYDROcodone/APAP 10-325MG [[place] 10-325] 1 tab PO QID PRN #30 PRN Reason: Pain Discontinued Acetaminophen [Tylenol] 500 mg PO TID PRN PRN Reason: Pain Sulfamethox-Tmp 800-160Mg [Bactrim DS 800-160 mg] 1 tab PO Q12HR Amoxicillin/Potassium Clav [Augmentin 875-125 Tablet] 1 tab PO Q12HR Discharge Medication List Baclofen [Lioresal] 20 mg PO QID PRN 04/24/15 [History] Ergocalciferol [Vitamin D2 (DRISDOL)] 50,000 unit PO FR 04/24/15 [History] Furosemide [Lasix] 80 mg PO BID 04/24/15 [History] Ibuprofen [Motrin] 800 mg PO Q8HR PRN 04/24/15 [History] Potassium Chloride [K-Tab ER] 20 meq PO DAILY 04/24/15 [History] Ranitidine HCl [Zantac] 150 mg PO BID 04/24/15 [History] Multivitamins, Thera [Multivitamin (formulary)] 1 tab PO DAILY 08/26/16 [History ] Aztreonam [Azactam] 2 gm IVPB Q8H #63 vial 10/02/16 [Rx] Collagenase [Santyl] 1 applic TOPICAL DAILY dose 10/02/16 [Rx] HYDROcodone/APAP 10-325MG [[place] 10-325] 1 tab PO QID PRN #30 10/02/16 [Rx] Vancomycin 2,500 mg IVPB Q12H #42 bag 10/02/16 [Rx] Follow up Appointment(s)/Referral(s): Deon Jones, [NON-STAFF] - 1 Week Monica Knight MD [Primary Care Provider] - 1-2 days Ambulatory/Diagnostic Orders: Complete Blood Count w/diff [LAB.AMB] Location: Determined By Patient Comprehensive Metabolic Panel [LAB.AMB] Location: Determined By Patient Vancomycin,Trough [LAB.AMB] Location: Determined By Patient Patient Instructions/Handouts: Heart Failure (DC), Cellulitis (DC) Activity/Diet/Wound Care/Special Instructions: No smoking, cessation information provided. Low fat, cardiac diet. PICC line card given and literature. Clean lower left leg calf wound daily and change dressing daily with Santyl, moist dressing, ABD and kerlix. Discharge Disposition: TRANSFER TO SNF/ECF
[2016-10-02 15:55] VITALS: BP 104/63; PULSE 106; RESP 18; TEMP 97.8
[2016-10-02] MEDS: MAG HYDROX/AL HYDROX/SIMETH 30 ML CUP PO PRN (17:26)
== END 2016-10-02 21:00 | DRG 872 ==
LOC: EC 16:21 → 4MS4W 19:33
PROVIDERS: ADMIT Internal Medicine; ATTEND Internal Medicine
PROC: B548ZZA Ultrasonography of Superior Vena Cava, Guidance (ICD-10-PCS; 2016-10-01)
PROC: 02HV33Z Insertion of Infusion Device into Superior Vena Cava, Percutaneous Approach (ICD-10-PCS; principal; 2016-10-01 10:55)
DX: A41.51 Sepsis due to Escherichia coli [E. coli] (principal); F11.20 Opioid dependence, uncomplicated; I50.9 Heart failure, unspecified; I83.222 Varicose veins of left lower extremity with both ulcer of calf and inflammation; L97.221 Non-pressure chronic ulcer of left calf limited to breakdown of skin; Z68.42 Body mass index [BMI] 45.0-49.9, adult; L03.116 Cellulitis of left lower limb; M86.9 Osteomyelitis, unspecified; S72.302K Unspecified fracture of shaft of left femur, subsequent encounter for closed fracture with nonunion; E66.01 Morbid (severe) obesity due to excess calories; G89.4 Chronic pain syndrome; M06.9 Rheumatoid arthritis, unspecified; I25.10 Atherosclerotic heart disease of native coronary artery without angina pectoris; F32.9 Major depressive disorder, single episode, unspecified; B96.5 Pseudomonas (aeruginosa) (mallei) (pseudomallei) as the cause of diseases classified elsewhere; B95.2 Enterococcus as the cause of diseases classified elsewhere; F41.9 Anxiety disorder, unspecified; I89.0 Lymphedema, not elsewhere classified; M85.80 Other specified disorders of bone density and structure, unspecified site; M97.02XD Periprosthetic fracture around internal prosthetic left hip joint, subsequent encounter; B95.62 Methicillin resistant Staphylococcus aureus infection as the cause of diseases classified elsewhere; F17.200 Nicotine dependence, unspecified, uncomplicated; Z79.899 Other long term (current) drug therapy; Z99.3 Dependence on wheelchair; Z88.1 Allergy status to other antibiotic agents; Z91.040 Latex allergy status; Z88.0 Allergy status to penicillin; Z88.2 Allergy status to sulfonamides; Z88.8 Allergy status to other drugs, medicaments and biological substances; Z91.048 Other nonmedicinal substance allergy status
CPT/HCPCS: 36415; 80048; 80053; 80202; 82607; 83605; 85025; 85027; 85652; 86140; 87040; 87070; 87077; 87186; 87205

== ENCOUNTER 2017-04-18 16:16 | Inpatient (IN) | payer OTHER ==
--- NOTE | 2017-04-18 16:45 | ED ---
General Adult HPI - General Chief complaint: Skin/Abscess/Foreign Body Stated complaint: Lt hip pain Time Seen by Provider: 04/18/17 16:30 Source: patient, EMS, RN notes reviewed Mode of arrival: EMS Limitations: no limitations - History of Present Illness Initial comments: Patient is a pleasant 62-year-old male presenting to the emergency department with concerns for infection. Patient finished Invanz for left hip infection approximately a week ago. Patient has had increase discomfort since that time. Patient has had fever up to 101 at home. Fevers have resolved however patient still has increased from baseline discomfort. No upper respiratory symptoms. No cough or dyspnea. Patient has been taking some doxycycline at home from an old prescription without improvement of symptoms. - Related Data Home Medications Medication Instructions Recorded Confirmed Baclofen [Lioresal] 20 mg PO TID PRN 04/24/15 04/18/17 Ergocalciferol [Vitamin D2 50,000 unit PO FR 04/24/15 04/18/17 (DRISDOL)] Furosemide [Lasix] 80 mg PO BID 04/24/15 04/18/17 Ranitidine HCl [Zantac] 150 mg PO BID 04/24/15 04/18/17 Multivitamins, Thera [Multivitamin 1 tab PO DAILY 08/26/16 04/18/17 (formulary)] ALPRAZolam [Xanax] 0.25 mg PO TID PRN 11/07/16 04/18/17 Acetaminophen [Tylenol Extra 500 mg PO Q6H PRN 11/07/16 04/18/17 Strength] Ascorbic Acid [Vitamin C] 1,000 mg PO DAILY 01/07/17 04/18/17 Ibuprofen [Motrin] 800 mg PO BID 02/08/17 04/18/17 L.acidoph,Paracasei, B.lactis 2 cap PO DAILY 02/08/17 04/18/17 [Probiotic] Potassium Chloride ER [K-Dur 10] 10 meq PO BID 02/08/17 04/18/17 Lactobacillus Acidoph & [place] 1 packet PO BID 04/18/17 04/18/17 [Lactinex] Nitroglycerin Sl Tabs [Nitrostat] 0.4 mg SUBLINGUAL Q5M PRN 04/18/17 04/18/17 Previous Rx's Medication Instructions Recorded HYDROcodone/APAP 10-325MG [[place] 1 tab PO QID PRN #30 10/02/16 10-325] Ertapenem [INVanz] 1 gm IVPB Q24H #30 bag 02/12/17 Allergies Allergy/AdvReac Type Severity Reaction Status Date / Time adhesive Allergy Rash/Hives Verified 04/18/17 16:42 latex Allergy Rash/Hives Verified 04/18/17 16:42 levofloxacin [From Levaquin] Allergy Rash/Hives Verified 04/18/17 16:42 metolazone Allergy Unknown Verified 04/18/17 16:42 amoxicillin AdvReac Unknown Verified 04/18/17 16:42 ciprofloxacin [From Cipro] AdvReac Diarrhea Verified 04/18/17 16:42 ciprofloxacin HCl AdvReac Diarrhea Verified 04/18/17 16:42 [From Cipro] doxycycline AdvReac BLISTERS Verified 04/18/17 16:42 sulfamethoxazole AdvReac Unknown Verified 04/18/17 16:42 [From Bactrim] trimethoprim [From Bactrim] AdvReac Unknown Verified 04/18/17 16:42 vancomycin AdvReac Nausea Verified 04/18/17 16:42 PAPER TAPE Allergy Mild Rash/Hives Uncoded 04/08/17 14:48 Review of Systems ROS Statement: Those systems with pertinent positive or pertinent negative responses have been documented in the HPI. ROS Other: All systems not noted in ROS Statement are negative. Constitutional: Reports: fever, chills Eyes: Denies: eye pain ENT: Denies: ear pain Respiratory: Denies: cough, dyspnea Cardiovascular: Denies: chest pain Endocrine: Denies: fatigue Gastrointestinal: Denies: abdominal pain Genitourinary: Denies: dysuria Musculoskeletal: Reports: arthralgia. Denies: back pain Skin: Reports: rash Neurological: Denies: weakness Past Medical History Past Medical History: Coronary Artery Disease (CAD), Chest Pain / Angina, Heart Failure, GERD/Reflux, Musculoskeletal Disorder, Osteoarthritis (OA), Rheumatoid Arthritis (RA), Rheumatoid Arthritis (RA), Skin Disorder Additional Past Medical History / Comment(s): Left leg wound. Muscle spasms in legs. "Not urinating a lot despite being on Lasix". Bilateral rotator cuff pain. History of Any Multi-Drug Resistant Organisms: MRSA Date of last positivie culture/infection: 12/10/16 MDRO Source:: Left leg Past Surgical History: Joint Replacement, Orthopedic Surgery Additional Past Surgical History / Comment(s): L HIP SUGERY 1999, 2016 L hip repaired Past Anesthesia/Blood Transfusion Reactions: No Reported Reaction Past Psychological History: Anxiety, Depression Smoking Status: Current every day smoker Past Alcohol Use History: None Reported Past Drug Use History: None Reported - Past Family History Mother Family Medical History: Cancer Additional Family Medical History / Comment(s): Breast cancer, . Father Family Medical History: Myocardial Infarction ([place]) General Exam Limitations: no limitations General appearance: alert, in no apparent distress, obese Head exam: Present: atraumatic Eye exam: Present: normal appearance, PERRL ENT exam: Present: normal oropharynx Neck exam: Present: normal inspection Respiratory exam: Present: normal lung sounds bilaterally Cardiovascular Exam: Present: regular rate, normal rhythm GI/Abdominal exam: Present: soft. Absent: tenderness Extremities exam: Present: other (Left lateral thigh with erythema and warmth. Left lateral distal thigh with open wound approximately 1-2 cm with purulent discharge.) Neurological exam: Present: alert Psychiatric exam: Present: normal affect, normal mood Skin exam: Present: erythema Course Vital Signs 04/18/17 16:39 Temperature 98 F Pulse Rate 79 Respiratory 18 Rate Blood Pressure 159/71 O2 Sat by Pulse 98 Oximetry Medical Decision Making - Medical Decision Making Patient does not meet sepsis criteria. Patient was updated on plan. Case was discussed with Dr. Marques, who did come evaluate patient and will admit for Dr. Knight. - Lab Data Result diagrams: 04/18/17 16:31 04/18/17 16:31 Lab Results 04/18/17 04/18/17 04/18/17 Range/Units 16:31 16:31 16:31 WBC 9.6 (3.8-10.6) k/uL RBC 4.30 (4.30-5.90) m/uL Hgb 14.8 (13.0-17.5) gm/dL Hct 43.8 (39.0-53.0) % MCV 101.8 H (80.0-100.0) fL MCH 34.5 (25.0-35.0) pg MCHC 33.9 (31.0-37.0) g/dL RDW 12.1 (11.5-15.5) % Plt Count 277 (150-450) k/uL Neutrophils % 74 % Lymphocytes % 16 % Monocytes % 7 % Eosinophils % 2 % Basophils % 0 % Neutrophils # 7.1 (1.3-7.7) k/uL Lymphocytes # 1.5 (1.0-4.8) k/uL Monocytes # 0.7 (0-1.0) k/uL Eosinophils # 0.2 (0-0.7) k/uL Basophils # 0.0 (0-0.2) k/uL PT (9.0-12.0) sec INR (<1.2) APTT (22.0-30.0) sec Sodium 142 (137-145) mmol/L Potassium 3.8 (3.5-5.1) mmol/L Chloride 103 (98-107) mmol/L Carbon Dioxide 28 (22-30) mmol/L Anion Gap 11 mmol/L BUN 14 (9-20) mg/dL Creatinine 0.50 L (0.66-1.25) mg/dL Est GFR (MDRD) Af Amer >60 (>60 ml/min/1.73 sqM) Est GFR (MDRD) Non-Af >60 (>60 ml/min/1.73 sqM) Glucose 97 (74-99) mg/dL Plasma Lactic Acid Darryl 0.9 (0.7-2.0) mmol/L Calcium 9.6 (8.4-10.2) mg/dL Total Bilirubin 0.5 (0.2-1.3) mg/dL AST 27 (17-59) U/L ALT 38 (21-72) U/L Alkaline Phosphatase 160 H (38-126) U/L Total Protein 7.1 (6.3-8.2) g/dL Albumin 3.7 (3.5-5.0) g/dL 04/18/17 Range/Units 16:31 WBC (3.8-10.6) k/uL RBC (4.30-5.90) m/uL Hgb (13.0-17.5) gm/dL Hct (39.0-53.0) % MCV (80.0-100.0) fL MCH (25.0-35.0) pg MCHC (31.0-37.0) g/dL RDW (11.5-15.5) % Plt Count (150-450) k/uL Neutrophils % % Lymphocytes % % Monocytes % % Eosinophils % % Basophils % % Neutrophils # (1.3-7.7) k/uL Lymphocytes # (1.0-4.8) k/uL Monocytes # (0-1.0) k/uL Eosinophils # (0-0.7) k/uL Basophils # (0-0.2) k/uL PT 10.7 (9.0-12.0) sec INR 1.1 (<1.2) APTT 26.3 (22.0-30.0) sec Sodium (137-145) mmol/L Potassium (3.5-5.1) mmol/L Chloride (98-107) mmol/L Carbon Dioxide (22-30) mmol/L Anion Gap mmol/L BUN (9-20) mg/dL Creatinine (0.66-1.25) mg/dL Est GFR (MDRD) Af Amer (>60 ml/min/1.73 sqM) Est GFR (MDRD) Non-Af (>60 ml/min/1.73 sqM) Glucose (74-99) mg/dL Plasma Lactic Acid Darryl (0.7-2.0) mmol/L Calcium (8.4-10.2) mg/dL Total Bilirubin (0.2-1.3) mg/dL AST (17-59) U/L ALT (21-72) U/L Alkaline Phosphatase (38-126) U/L Total Protein (6.3-8.2) g/dL Albumin (3.5-5.0) g/dL Disposition Clinical Impression: Wound infection, Leg ulcer, left Disposition: ADMITTED IP TO THIS HOSP Referrals: Monica Knight MD [Primary Care Provider] - 1-2 days Decision Time: 18:31
[2017-04-18 16:53] LABS: Basophils % (A) 0 %; Eosinophils # (A) 0.2 k/uL (0-0.7); Eosinophils % (A) 2 %; HCT 43.8 % (39.0-53.0); HGB 14.8 gm/dL (13.0-17.5); Lymphocytes # (A) 1.5 k/uL (1.0-4.8); Lymphocytes % (A) 16 %; MCH 34.5 pg (25.0-35.0); MCHC 33.9 g/dL (31.0-37.0); MCV 101.8 fL (80.0-100.0); Mean Platelet Volume 6.9; Monocytes # (A) 0.7 k/uL (0-1.0); Monocytes % (A) 7 %; Neutrophils # (A) 7.1 k/uL (1.3-7.7); Neutrophils % (A) 74 %; Platelet Count 277 k/uL (150-450); RDW 12.1 % (11.5-15.5); WBC 9.6 k/uL (3.8-10.6)
[2017-04-18 17:00] LABS: INR 1.1 (<1.2); Partial Thromboplastin Time 26.3 sec (22.0-30.0); Prothrombin Time 10.7 sec (9.0-12.0)
[2017-04-18 17:04] LABS: ALT 38 U/L (21-72); AST 27 U/L (17-59); Albumin 3.7 g/dL (3.5-5.0); Alkaline Phosphatase 160 U/L (38-126); Anion Gap 11 mmol/L; Blood Urea Nitrogen 14 mg/dL (9-20); Calcium 9.6 mg/dL (8.4-10.2); Carbon Dioxide 28 mmol/L (22-30); Chloride 103 mmol/L (98-107); Glucose 97 mg/dL (74-99); Potassium 3.8 mmol/L (3.5-5.1); Sodium 142 mmol/L (137-145); Total Bilirubin 0.5 mg/dL (0.2-1.3); Total Protein 7.1 g/dL (6.3-8.2)
--- NOTE | 2017-04-18 17:49 | XR ---
EXAMINATION TYPE: XR femur LT DATE OF EXAM: 04/18/2017 COMPARISON: 02/07/2017 HISTORY: Pain and infection TECHNIQUE: 6 views FINDINGS: Multiple film exam shows left hip prosthesis. There is also fracture at the lower end of th e prosthesis with additional plate and screws fixing a midshaft fracture of the femur. There is gener alized osteopenia. The femur appears not changed in position compared to old exam. There is a fractur e of 2 of the proximal screw is involving the long plate fixing the midshaft fracture. The knee joint appears anatomic. IMPRESSION: Extensive surgery. No change in position compared to old exam. No change in the bone dens ity compared to old exam. I do not see specific site of osteomyelitis. White blood cell scan might be helpful for further evaluation if clinically indicated.
[2017-04-18] MEDS ORDERED: NALOXONE 0.4 MG/ML 1 ML VIAL IV PRN (18:31)
[2017-04-18] MEDS ORDERED: ERTAPENEM 1 GM in SODIUM CHLORIDE 0.9% 50 ML IVPB STA (18:33)
[2017-04-18] MEDS: SODIUM CHLORIDE 0.9% 1,000 ML IV SCH (20:24)
[2017-04-18] MEDS: HYDROcodone/APAP 10-325MG 1 EACH TAB PO PRN (20:58)
[2017-04-18] MEDS: FUROSEMIDE 80 MG TAB PO SCH (21:00)
[2017-04-18] MEDS ORDERED: NITROGLYCERIN SL TABS 0.4 MG TAB SUBLINGUAL PRN (21:14)
[2017-04-18] MEDS ORDERED: ALPRAZolam 0.25 MG TAB PO PRN (21:14)
[2017-04-18] MEDS ORDERED: MORPHINE SULFATE 4 MG/ML SYRINGE IVP PRN (21:15)
[2017-04-18] MEDS ORDERED: TEMAZEPAM 15 MG CAP PO PRN (21:15)
--- NOTE | 2017-04-18 22:28 | HP ---
HISTORY AND PHYSICAL CHIEF COMPLAINTS: Ulcers of the left leg. HISTORY OF PRESENT ILLNESS: This 62-year-old gentleman with a past medical history of multiple medical problems, including history of CAD, history of CHF, GERD, DJD, rheumatoid arthritis, history of anxiety, depression, being followed by Dr. Knight in the outpatient setting, recently had a left leg wound. The patient was admitted to the hospital and monitored closely. Patient was started with a PICC line and Invanz was given for 60 days. After stopping Invanz, the patient has noticed persistence of infection and also an area of drainage later on the left knee, and the patient was taken to [facility] and admitted for further evaluation and treatment. Please note also that the patient had left hip surgery from elsewhere as well. There is no history of any fever, rigor or chills. No history of headache, loss of consciousness, seizures. PAST MEDICAL HISTORY: 1. History of CAD. 2. History of chest pain. 3. CHF. 4. GERD. 5. History of DJD. 6. History of rheumatoid arthritis. 7. Anxiety, depression. HOME MEDICATIONS: Home medications include: 1. Lioresal 20 mg p.o. t.i.d. p.r.n. 2. Tylenol 500 mg q.6 p.r.n. 3. Xanax 0.25 t.i.d. p.r.n. 4. Zantac 150 mg p.o. b.i.d. 5. K-Dur 10 mEq p.o. daily. 6. Nitrostat 0.4 sublingually p.r.n. 7. Multivitamins 1 p.o. daily. 8. Lactinex 1 packet p.o. b.i.d. 9. Probiotic 2 capsules daily. 10.Motrin 800 mg p.o. b.i.d. 11.[place] 10 mg q.i.d. p.r.n. 12.Lasix 80 mg p.o. b.i.d. 13.Invanz 1 gram IV q.24 hours. 14.Drisdol 50,000 p.o. Friday. 15.Vitamin C 1000 mg p.o. daily. ALLERGIES: 1. ADHESIVES. 2. LATEX. 3. LEVAQUIN. 4. METOLAZONE. 5. AMOXICILLIN. 6. CIPRO. 7. DOXYCYCLINE. 8. BACTRIM. 9. VANCOMYCIN. 10.PAPER TAPE. FAMILY HISTORY: History of breast cancer in the family. SOCIAL HISTORY: History of smoking. REVIEW OF SYSTEMS: ENT: No diminished hearing. No diminished vision. CARDIOVASCULAR SYSTEM: No angina, palpitations. RESPIRATORY SYSTEM: No cough, hemoptysis. GI: No nausea, vomiting. : No dysuria or retention. NERVOUS SYSTEM: As mentioned earlier. ALLERGY/IMMUNOLOGY: No asthma, hayfever. MUSCULOSKELETAL: As mentioned earlier. HEMATOLOGY/ONCOLOGY: No history of anemia. ENDOCRINE: No history of diabetes, hypothyroidism. CONSTITUTIONAL: As mentioned earlier. DERMATOLOGY: Negative. RHEUMATOLOGY: As mentioned earlier. PSYCHIATRY: As mentioned earlier. PHYSICAL EXAMINATION: Patient alert and oriented x3. Pulse 79, blood pressure 159/71, respiration 18, temperature 98 degrees, pulse ox 98% on room air. HEENT: Conjunctivae normal. Oral mucosa moist. NECK: No jugular venous distention. No carotid bruit. No lymph node enlargement. CARDIOVASCULAR SYSTEM: S1, S2 muffled. RESPIRATORY SYSTEM: Breath sounds diminished at the bases. No rhonchi. No crackles. ABDOMEN: Soft, non-tender, obese. No mass palpable. LEGS: Significant lesion on the left leg with significant ulceration on the posterior part of the lower leg with exudation discoloration and tenderness. Otherwise, also an area of drainage which is packed on the left lateral part of the left knee. NERVOUS SYSTEM: Higher functions as mentioned earlier. Moves all 4 limbs. No focal motor or sensory deficit. LYMPHATICS: No lymph node palpable in neck, axillae or groin. SKIN: No ulcer, rash, bleeding. LABS: MCV is 101.8. Otherwise, INR is 1.1. Sodium 142, potassium 3.8 and creatinine is 0.50. ASSESSMENT: 1. Acute on chronic ulceration of the left leg x2 with failure of outpatient treatment. 2. History of coronary artery disease. 3. History of chest pain. 4. History of congestive heart failure. 5. Gastroesophageal reflux disease. 6. History of degenerative joint disease. 7. History of rheumatoid arthritis. 8. History of muscle spasm. 9. History of Methicillin-resistant Staphylococcus aureus. 10.History of anxiety, depression. 11.History of continued and ongoing nicotine dependence. 12.Obesity with body mass index of 40.6. 13.Status post PICC line on the left arm. RECOMMENDATIONS AND DISCUSSION: In this 62-year-old gentleman who presented with multiple complex medical issues we will monitor the patient closely, continue the current medications, continue with symptomatic treatment. Will initiate broad-spectrum IV antibiotics, consult Infectious Disease. Otherwise I would also recommend resuming the home medications, repeat labs, obtain cultures. Local treatment. DVT prophylaxis. We will continue with lactobacillus and resume the home medications. The overall prognosis is guarded because of multiple complex medical issues. Further recommendations to follow. We will obtain the serology as well. Otherwise, prognosis is guarded because of the multiple complex medical issues. Further recommendations to follow. See orders for further details. MMODL / IJN: [id number] / MTDD
[2017-04-18] MEDS: HEPARIN SODIUM,PORCINE 5,000 UNIT/ML 1 ML VIAL SQ SCH (23:09)
[2017-04-18] MEDS: FAMOTIDINE 20 MG TAB PO SCH (23:09)
[2017-04-19] MEDS: HYDROcodone/APAP 10-325MG 1 EACH TAB PO PRN ×2 (05:25→15:11)
[2017-04-19] MEDS: FUROSEMIDE 80 MG TAB PO SCH ×2 (08:23→16:21)
[2017-04-19] MEDS: HEPARIN SODIUM,PORCINE 5,000 UNIT/ML 1 ML VIAL SQ SCH ×2 (08:23→20:44)
[2017-04-19] MEDS: FAMOTIDINE 20 MG TAB PO SCH ×2 (08:23→20:46)
[2017-04-19] MEDS: POTASSIUM CHLORIDE ER 10 MEQ TAB.ER.PRT PO SCH ×2 (08:24→20:46)
[2017-04-19] MEDS: LACTOBACILLUS ACIDOPH & BULGAR 1 EACH PACKET PO SCH ×2 (08:24→20:46)
[2017-04-19] MEDS: IBUPROFEN 800 MG TAB PO SCH ×2 (08:31→20:47)
[2017-04-19] MEDS ORDERED: ACIDOPH PARACASEI B LACTIS PO SCH (09:00)
[2017-04-19] MEDS ORDERED: ERTAPENEM 1 GM in SODIUM CHLORIDE 0.9% 50 ML IVPB SCH (09:00)
[2017-04-19] MEDS: BACLOFEN 10 MG TAB PO PRN ×2 (10:29→19:05)
[2017-04-19] MEDS: ASCORBIC ACID 500 MG TAB PO SCH (11:29)
[2017-04-19] MEDS: MULTIVITAMINS, THERA 1 EACH TAB PO SCH (11:29)
--- NOTE | 2017-04-19 16:57 | CONS ---
CONSULTATION DATE OF SERVICE: 04/19/2017 REASON FOR CONSULTATION: Left leg infected wound and cellulitis. HISTORY OF PRESENT ILLNESS: The patient is a 62-year-old male who did have infected hematoma to the left thigh area. Cultures were positive for Enterobacter cloacae and an E coli Enterobacter resistant pathogen and the patient has been treated with IV Invanz for almost 2 months. The patient follows with Dr. Kilgore in the [facility], last evaluated on 04/08/2017. At that time, antibiotics were discontinued. However, the patient said that the PICC line was not removed, as advised to be off antibiotic for a week before pulling the PICC line out. The patient did have a venostasis ulcer to the left leg, currently being treated with Medihoney and the dressing was changed yesterday. The patient did not allow us to change his dressing today to look at the wound. He did have a wound to the left lateral thigh area, that has currently been healing. Did mention that he started having not feeling well on Friday with some fever and chills and he noticed his thigh to becoming more swollen, right and painful. Pain described to be throbbing almost 6 to 7/10, and no radiation. The patient starting some leftover doxycycline that he has at home and was waiting for the social security check to come, so he can pay some bills before he heads to the hospital. Ended up coming to the ER last night with the patient has been evaluated by the ER physician. Wound culture has been obtained on arrival to the ER. The patient with no fever. His white count was normal. Sed rate was 36. CRP was elevated. X-rays of the left femur did show his extensive surgery. No change in position compared to old exam. Has been restarted on Invanz. Infectious Disease was consulted for further recommendation regarding antibiotic therapy. REVIEW OF SYSTEMS: CONSTITUTIONAL: Positive for weakness and fever. Apparently that has resolved by the time he came to the hospital with oral doxycycline. EYES: No complaint. ENT: No complaint. RESPIRATORY: No complaint. CARDIOVASCULAR: No complaint. GENITOURINARY: No complaint. GASTROINTESTINAL: No complaint. MUSCULOSKELETAL: As per HPI. INTEGUMENTARY: As per HPI. PSYCHOLOGICAL: No complaint. ENDOCRINE: No complaint. NEUROLOGIC: No complaint. PAST MEDICAL HISTORY: Congestive heart failure, gastroesophageal reflux disease, coronary artery disease, left hip and femur fracture, osteomyelitis and recent Enterobacter infection of the left leg wound. PAST SURGICAL HISTORY: Left hip replacement, probably from old fracture repair with ORIF and debridement of his wound. SOCIAL HISTORY: Positive for smoking. Smokes about a pack a day. Denies any drinking or drug use. FAMILY HISTORY: Mother with history of breast cancer. ALLERGIES: To AMOXICILLIN, LEVOFLOXACIN, mostly with rash. MEDICATION: Include the patient is currently on Tylenol, Shabbona, Xanax, vitamin C, baclofen, vitamin D2, Invanz 1 g daily, Pepcid, Lasix, heparin, Motrin, Lactinex, morphine sulfate, Theragran, Narcan, Nitrostat, K-Dur, and Restoril. PHYSICAL EXAMINATION: Blood pressure is 111/71 with a pulse of 86, temperature 97.1. He is 97% on room air. General description is a middle-aged male, lying in bed in no distress. No tachypnea or accessory muscle for respiration use. HEENT: Shows no pallor or scleral icterus. Oral mucosa is moist, no erythema, thrush. NECK: Trachea central, no thyromegaly. LUNGS: Unlabored breathing, clear to auscultation. No wheeze or crackle. HEART: S1, S2. Regular rate and rhythm. No murmur. ABDOMEN: Soft, no tenderness. No organomegaly. EXTREMITIES: Left thigh lateral border did have a wound. The wound itself looks clean with no slough tissue, some swelling in the left thigh area, but no redness. The patient would not let change the dressing on the left leg to look well of the wound on the left leg with no apparent drainage on the left leg dressing. Skin at the site, no rashes, no mass palpable. NEUROLOGICAL: Patient is awake, alert, oriented x3. Mood and affect normal. LABS: Hemoglobin is 14.8, white count 9.6 with a BUN of 14, creatinine 0.50. Electrolytes have been normal with normal elevated CRP and sed rate. X-rays with no changes. DIAGNOSTIC IMPRESSION AND PLAN: 1. Patient admitted to the hospital with left thigh cellulitis. The patient did have a previous history of infected hematoma to the left thigh area back in January of 2017. Culture that showed multi-drug resistant Enterobacter that has been treated with 2 months treatment of Invanz and now with recurrence of swelling and redness a week after stopping his antibiotic therapy. Concern for possible deep infection, needs to be ruled out. May need further intervention and debridement. 2. Left leg venous stasis ulcer. Apparently, there was evidence for cellulitis per description of the patient. PLAN: 1. Invanz 1 g IV daily will be continued while waiting for the culture to finalize. 2. Re-evaluate the wound tomorrow to left leg and the dressing to continue with Medihoneywin Kerlix. Patient has been refusing Jesus wraps. 3. Depending on clinical response of the culture, adjust the medication further if needed. Dr. Kilgore will resume care as of Friday. MMODL / IJN: [id number] /
[2017-04-19] MEDS: ERTAPENEM 1 GM in SODIUM CHLORIDE 0.9% 50 ML IVPB SCH (18:44)
[2017-04-19] MEDS: ACETAMINOPHEN TAB 500 MG TAB PO PRN (19:05)
[2017-04-19] MEDS: HYDROcodone/APAP 10-325MG 1 EACH TAB PO SCH (20:47)
[2017-04-19] MEDS: SODIUM CHLORIDE 0.9% 1,000 ML IV SCH (20:47)
[2017-04-19] MEDS ORDERED: FUROSEMIDE 80 MG TAB PO SCH (21:00)
--- NOTE | 2017-04-19 23:21 | PN ---
PROGRESS NOTE DATE OF SERVICE: 04/19/17. INTERVAL HISTORY: This 62-year-old gentleman who was admitted with acute on chronic ulceration of the left leg is being closely monitored at this time. No chest pain. No palpitations. No fever. Infectious disease evaluation has been done and recommend Invanz IV. Local treatment is with is being continued. No chest pain. No palpitations. No fever. EXAM: Alert and oriented times three. Pulse is 86, blood pressure 111/71, respirations 16, temperature 97.1, pulse ox 87% on room air and 90% room air. HEENT: Conjunctivae normal. NECK: No jugular venous distention. Cardiovascular: S1, S2 muffled. Respirations: Breath sounds diminished in the bases. A few scattered rhonchi and crackles. Abdomen is soft, nontender. Legs are no edema. No swelling. Nervous system: No focal deficits. LABS: CBC within normal limits. Hemoglobin 10.5. Other labs are noted. ASSESSMENT: 1. Acute on chronic ulceration of the left eye with failure of outpatient treatment. 2. History of coronary artery disease. 3. History of chest pain. 4. History of congestive heart failure. 5. Gastroesophageal reflux disease. 6. History of degenerative joint disease. 7. History of rheumatoid arthritis. 8. History of muscle spasm. 9. History of Methicillin-resistant Staphylococcus aureus. 10.History of anxiety and depression. 11.History of continued ongoing nicotine dependence. 12.Obesity with body mass index of 40.6. 13.Status post PICC line on the left arm. RECOMMENDATIONS AND DISCUSSION: Recommended to continue current medications. Continue management. Symptomatic treatment. Continue with IV antibiotics. Invanz. Follow with new cultures. Continue to monitor. Closely follow with Infectious Disease. Guarded prognosis. Further recommendations to follow. MMODL / IJN: [id number] / MTDD
[2017-04-20] MEDS: DAPTOmycin 500 MG in SODIUM CHLORIDE 0.9% 50 ML IVPB SCH ×2 (01:42→20:48)
[2017-04-20] MEDS: HYDROcodone/APAP 10-325MG 1 EACH TAB PO SCH ×4 (06:11→20:48)
[2017-04-20] MEDS: FUROSEMIDE 80 MG TAB PO SCH ×2 (06:12→17:58)
[2017-04-20] MEDS: ACETAMINOPHEN TAB 500 MG TAB PO PRN ×2 (06:14→20:54)
[2017-04-20] MEDS: FAMOTIDINE 20 MG TAB PO SCH ×2 (08:33→20:47)
[2017-04-20] MEDS: HEPARIN SODIUM,PORCINE 5,000 UNIT/ML 1 ML VIAL SQ SCH ×2 (08:33→20:48)
[2017-04-20] MEDS: LACTOBACILLUS ACIDOPH & BULGAR 1 EACH PACKET PO SCH ×2 (08:34→22:24)
[2017-04-20] MEDS: POTASSIUM CHLORIDE ER 10 MEQ TAB.ER.PRT PO SCH ×2 (08:34→20:47)
[2017-04-20] MEDS: IBUPROFEN 800 MG TAB PO SCH ×2 (08:47→20:54)
[2017-04-20] MEDS: BACLOFEN 10 MG TAB PO PRN ×2 (09:12→23:15)
[2017-04-20] MEDS: MULTIVITAMINS, THERA 1 EACH TAB PO SCH (13:48)
[2017-04-20] MEDS: ASCORBIC ACID 500 MG TAB PO SCH (13:48)
--- NOTE | 2017-04-20 17:55 | PN ---
PROGRESS NOTE . DATE OF SERVICE: 04/20/2017 This 62-year-old gentleman who was admitted with acute on chronic ulceration of the left leg with failure of outpatient treatment has been closely monitored. The patient on broad-spectrum IV antibiotics and wound culture showed presumptive MRSA and as well as gram-negative bacilli. No chest pain. No palpitations. No fever. PHYSICAL EXAM: Alert and oriented times three. Pulse 72. Blood pressure 120/60, respirations 16, temperature 97 degrees, pulse ox 98% on room air. HEENT: Conjunctivae normal. Neck: No jugular venous distention. Cardiac: S1, S2 muffled. Respiratory: Breath sounds diminished at the bases. No rhonchi and no crackles. ABDOMEN: Soft, nontender. No mass palpable. Legs: Left leg ulceration present. Central nervous system: No focal deficits. LABS: CMP is 157.2, factor is 8. ASSESSMENT: 1. Acute on chronic ulceration of the left eye with failure of outpatient treatment. 2. History of coronary artery disease. 3. History of chest pain. 4. History of congestive heart failure. 5. Gastroesophageal reflux disease. 6. History of degenerative joint disease. 7. History of rheumatoid arthritis. 8. History of muscle spasm. 9. History of Methicillin-resistant Staphylococcus aureus. 10.History of anxiety/depression. 11.History of continued ongoing nicotine dependence. 12.Obesity with body mass index of 40.6. 13.Status post PICC line on the left arm. RECOMMENDATIONS AND DISCUSSION: Recommend to continue current medications, continue with monitoring, symptomatic treatment. Continue the antibiotics. Await the final cultures of the report and I would also recommend repeat labs. DVT prophylaxis. At this time, the patient wishes to be at home with IV antibiotics if possible rather than ECF. We will continue to monitor. Follow up closely with ECF. Follow closely with Infectious Disease. Repeat labs as mentioned earlier. Further recommendations to follow. See orders for details. MMODL / IJN: [id number] / SAURAV
[2017-04-20] MEDS: ERTAPENEM 1 GM in SODIUM CHLORIDE 0.9% 50 ML IVPB SCH (17:58)
[2017-04-20] MEDS: SODIUM CHLORIDE 0.9% 1,000 ML IV SCH (17:58)
--- NOTE | 2017-04-20 23:04 | PN ---
PROGRESS NOTE DATE OF SERVICE: 04/20/2017. REASON FOR FOLLOWUP: Left leg wound and infection cellulitis. INTERVAL HISTORY: The patient is afebrile, has been breathing comfortably. Denies any chest pain, shortness of breath, cough or abdominal pain. Some pain in the left leg area, but no worsening. No nausea or vomiting. EXAMINATION: Blood pressure is 118/71 with a pulse of 88, temperature 96.9. He is 91% on room air. General description is a middle-aged male lying in bed in no distress. Respiratory system: Unlabored breathing. Clear to auscultation anteriorly. Heart S1, S2. Regular rate and rhythm. Abdomen soft. Left leg wound with significant amount of slough tissue. No significant surrounding erythema or any foul-smelling drainage. Left thigh wound is small wound with no surrounding redness or drainage. LABS: Hemoglobin is 14.8, white count 9.6, sedimentation rate of 36, BUN of 14, creatinine 0.50. Wound culture showing an MRSA and group D Enterococcus with gram-negative from the left leg wound. DIAGNOSTIC IMPRESSION AND PLAN: 1. Patient with venous stasis ulcer to the left leg now showing culture positive for MRSA and group D Enterococcus. The wound did have significant amount of slough tissue, but no significant cellulitis was noticed on today's evaluation. The patient did have a history of VANCOMYCIN ALLERGY with wound. hence the patient continued on daptomycin at this point. 2. Patient with left leg wound cellulitis. Blood culture showing a gram-negative. Patient currently covered Invanz adjusting it further based on the culture report and the patient known to Dr. Kilgore, who will follow the patient as of tomorrow. 3. Continue supportive care. MMODL / IJN: [id number] /
[2017-04-21] MEDS: FUROSEMIDE 80 MG TAB PO SCH ×2 (05:16→17:19)
[2017-04-21] MEDS: ACETAMINOPHEN TAB 500 MG TAB PO PRN ×3 (05:16→15:58)
[2017-04-21] MEDS: HYDROcodone/APAP 10-325MG 1 EACH TAB PO SCH ×4 (05:16→21:13)
[2017-04-21] MEDS: HEPARIN SODIUM,PORCINE 5,000 UNIT/ML 1 ML VIAL SQ SCH ×2 (08:31→21:14)
[2017-04-21] MEDS: POTASSIUM CHLORIDE ER 10 MEQ TAB.ER.PRT PO SCH ×2 (08:33→21:13)
[2017-04-21] MEDS: LACTOBACILLUS ACIDOPH & BULGAR 1 EACH PACKET PO SCH ×2 (08:33→21:13)
[2017-04-21] MEDS: FAMOTIDINE 20 MG TAB PO SCH ×2 (08:33→21:13)
[2017-04-21] MEDS: IBUPROFEN 800 MG TAB PO SCH ×2 (08:36→21:14)
[2017-04-21 08:39] LABS: Basophils % (A) 0 %; Eosinophils # (A) 0.2 k/uL (0-0.7); Eosinophils % (A) 3 %; HCT 46.2 % (39.0-53.0); Lymphocytes # (A) 1.2 k/uL (1.0-4.8); Lymphocytes % (A) 15 %; MCH 32.5 pg (25.0-35.0); MCHC 32.5 g/dL (31.0-37.0); Mean Platelet Volume 7.1; Monocytes # (A) 0.3 k/uL (0-1.0); Monocytes % (A) 4 %; Neutrophils # (A) 6.2 k/uL (1.3-7.7); Neutrophils % (A) 77 %; Platelet Count 362 k/uL (150-450); RBC 4.62 m/uL (4.30-5.90); RDW 12.4 % (11.5-15.5); WBC 8.1 k/uL (3.8-10.6)
[2017-04-21 09:07] LABS: Anion Gap 12 mmol/L; Blood Urea Nitrogen 14 mg/dL (9-20); Calcium 9.3 mg/dL (8.4-10.2); Carbon Dioxide 29 mmol/L (22-30); Chloride 101 mmol/L (98-107); Glucose 93 mg/dL (74-99); Potassium 3.8 mmol/L (3.5-5.1); Sodium 142 mmol/L (137-145)
[2017-04-21] MEDS: ASCORBIC ACID 500 MG TAB PO SCH (11:17)
[2017-04-21] MEDS: MULTIVITAMINS, THERA 1 EACH TAB PO SCH (11:17)
[2017-04-21 11:42] VITALS: BMI 36.9
[2017-04-21] MEDS ORDERED: HYDROmorphone 2 MG TAB PO PRN (14:18)
[2017-04-21] MEDS: SODIUM CHLORIDE 0.9% 1,000 ML IV SCH (17:18)
[2017-04-21] MEDS: ERTAPENEM 1 GM in SODIUM CHLORIDE 0.9% 50 ML IVPB SCH (17:22)
--- NOTE | 2017-04-21 18:37 | P.PN ---
Subjective Progress Note Date: 04/21/17 Progress note being dictated for Dr. Marques. Interval history: This is a 62-year-old gentleman with left leg venous stasis ulcer, culture positive for MRSA and group D enterococcus, as well as Enterobacter clocae, Stacia albicans. Maintained on daptomycin and ertapenem. Afebrile. States pain controlled, not worse. Denies chest pain, palpitations or increasing shortness of breath. Objective - Vital Signs Vital signs: Vital Signs Temp 97.2 F L 04/21/17 15:00 Pulse 79 04/21/17 15:00 Resp 18 04/21/17 15:00 BP 122/65 04/21/17 15:00 Pulse Ox 92 L 04/21/17 15:00 Intake & Output 04/20/17 04/21/17 04/21/17 18:59 06:59 18:59 Intake Total 720 600 480 Output Total 6507 151 3584 Balance -1374 -796 -0364 Weight 134 kg 134 kg Intake: Oral 720 600 480 Output: Urine 6946 807 5364 Other: Voiding Method Urinal Urinal # Voids 6 2 5 # Bowel Movements 1 - Exam PHYSICAL EXAM: VITAL SIGNS: As above GENERAL: Sitting up in bed, no acute distress HEENT: Conjunctivae normal. eyes normal. NECK: No JVD. No thyroid enlargement. No LNs CARDIOVASCULAR: S1, S2 muffled. No murmur RESPIRATION: Breath sounds diminished in the bases. No rhonchi or crackles. ABDOMEN: Soft, nontender . No guarding. no masses palpable.Bowel sounds heard. LEGS: No edema. no swelling PSYCHIATRY: Alert and oriented -3, mood and affect normal. NERVOUS SYSTEM: Cranial N 2-12 grossly normal. Moves all 4 limbs. Diffuse weakness No focal deficits. Skin: Left hip/thigh infection, left calf wound, dressings clean dry and intact Microbiology 04/19/17 15:44 Blood Blood Culture - Preliminary No Growth after 48 hours 04/18/17 18:51 Leg - Left Gram Stain - Final 04/18/17 18:51 Leg - Left Wound Culture - Final Enterobacter cloacae Stacia albicans 04/18/17 16:31 Blood Blood Culture - Preliminary No Growth after 48 hours 04/18/17 17:08 Leg - Right Gram Stain - Preliminary 04/18/17 17:08 Leg - Right Wound Culture - Preliminary Methicillin resist S. aureus Group D Enterococcus - Labs CBC & Chem 7: 04/21/17 07:49 04/21/17 07:49 Labs: Abnormal Lab Results - Last 24 Hours (Table) 04/21/17 Range/Units 07:49 Creatinine 0.51 L (0.66-1.25) mg/dL Microbiology - Last 24 Hours (Table) 04/19/17 15:44 Blood Culture - Preliminary Blood No Growth after 48 hours 04/18/17 18:51 Gram Stain - Final Leg - Left Wound Culture - Final Enterobacter cloacae Stacia albicans 04/18/17 16:31 Blood Culture - Preliminary Blood No Growth after 48 hours 04/18/17 17:08 Gram Stain - Preliminary Leg - Right Wound Culture - Preliminary Methicillin resist S. aureus Group D Enterococcus Assessment and Plan Assessment: 1. Acute and chronic ulceration of the left leg with hired outpatient treatment. MRSA and group D enterococcus, as well as Enterobacter clocae, Stacia albicans 2. CAD 3. Degenerative joint disease 4. Rheumatoid arthritis 5. Gastroesophageal reflux disease 6. Obesity, BMI 37 7. PICC line Plan: Continue on current medication regime ,monitoring and symptomatic treatment. Antibiotics as per infectious disease. Preliminary blood cultures negative at 48 hours, close monitoring of cultures. GI and DVT prophylaxis in place. The impression and plan of care has been dictated as directed. : I performed a history and examination of this patient, discussed the same with the dictator. I agree with the dictator's note ,documented as a scribe. Any additional findings or plans will be noted.
[2017-04-21] MEDS: DAPTOmycin 500 MG in SODIUM CHLORIDE 0.9% 50 ML IVPB SCH (21:14)
--- NOTE | 2017-04-21 22:52 | P.PN ---
Subjective Progress Note Date: 04/21/17 Principal diagnosis: cellulitis of left leg 8-year-old male well-known to the service presents to the emergency center on 04/18/2017. The patient started to have a fever on Friday of last week. At that point in time he contacted the wound healing Center. He was advised of the fever and illness he should present to the emergency center for further evaluation and admission if he is having difficulty with the infection to his left leg. The patient has no history of trauma to his left leg with repair. He developed the site of wound distally and then on the thigh itself. Evidence of Enterobacter and MRSA was found and he was treated with a course of outpatient intravenous antibiotic therapy. After weeks of therapy there was marked improvement of his status and the goal was to discontinue antibiotic therapy and monitor his response. The patient developed a fever as noted but did not come to the emergency center as directed when he called the wound center. He waited until late on Friday because it is more convenient for him. He subsequently was admitted and is now being followed by this provider. The patient was she's feeling better since coming to hospital. The swelling and redness he and the leg seems to be resolved. He relates he exotoxin doxycycline as an outpatient and that actually was her help in the leg to get a bit better. He is not denying further fevers, chills or rigors. But the leg is uncomfortable and there is still some drainage. Objective - Vital Signs Vital signs: Vital Signs Temp 97.2 F L 04/21/17 15:00 Pulse 79 04/21/17 15:00 Resp 18 04/21/17 15:00 BP 122/65 04/21/17 15:00 Pulse Ox 92 L 04/21/17 15:00 Intake & Output 04/21/17 04/21/17 04/22/17 06:59 18:59 06:59 Intake Total 600 480 Output Total 900 2300 Balance -300 -1820 Weight 134 kg 134 kg Intake: Oral 600 480 Output: Urine 900 2300 Other: Voiding Method Urinal # Voids 2 5 # Bowel Movements 1 - Exam 62-year-old male anxious, complains of pain to the left leg. HEENT: Anicteric conjunctiva are pink and moist nasal mucosa grossly intact without significant lesions, there is no thrush. Neck: The neck is supple without significant lymphadenopathy or thyromegaly. Lungs: Good bilateral air entry without significant crackles or wheezing. There is no significant bronchial sounds. There is no egophony or dullness. Heart: Regular rate and rhythm with an audible S1-S2, no S3 no S4. There is no significant murmur click or rub, PMI was nondisplaced. Abdomen: Positive bowel sounds soft and nontender without palpable masses or organomegaly. There was no guarding or rebound. Extremities: The upper extremities have excellent pulses they are symmetric, no significant petechiae or telangiectasia. No splinter hemorrhages were noted. The left arm PICC line is intact without tenderness, nursing staff relates is functioning well The right lower extremity without acute abnormality. Left lower extremity reveals evidence of the posterior calf ulceration, please see nursing photography for the specifics. There is also on the posterior aspect of the thigh, at the prior surgical incision site of some drainage at the open ulceration Both sites are tender. Neuro: Patient is awake and alert. He does have significant anxiety. It does not have new acute gross focal sensory motor deficits. - Labs CBC & Chem 7: 04/21/17 07:49 04/21/17 07:49 Labs: Abnormal Lab Results - Last 24 Hours (Table) 04/21/17 Range/Units 07:49 Creatinine 0.51 L (0.66-1.25) mg/dL Microbiology - Last 24 Hours (Table) 04/18/17 17:08 Gram Stain - Final Leg - Right Wound Culture - Final Methicillin resist S. aureus Enterococcus faecalis 04/18/17 16:31 Blood Culture - Preliminary Blood No Growth after 72 hours 04/19/17 15:44 Blood Culture - Preliminary Blood No Growth after 48 hours 04/18/17 18:51 Gram Stain - Final Leg - Left Wound Culture - Final Enterobacter cloacae Stacia albicans Laboratory Results WBC 8.1 k/uL (3.8-10.6) 04/21/17 07:49 RBC 4.62 m/uL (4.30-5.90) 04/21/17 07:49 Hgb 15.0 gm/dL (13.0-17.5) 04/21/17 07:49 Hct 46.2 % (39.0-53.0) 04/21/17 07:49 MCV 100.0 fL (80.0-100.0) 04/21/17 07:49 MCH 32.5 pg (25.0-35.0) 04/21/17 07:49 MCHC 32.5 g/dL (31.0-37.0) 04/21/17 07:49 RDW 12.4 % (11.5-15.5) 04/21/17 07:49 Plt Count 362 k/uL (150-450) 04/21/17 07:49 Neutrophils % 77 % 04/21/17 07:49 Lymphocytes % 15 % 04/21/17 07:49 Monocytes % 4 % 04/21/17 07:49 Eosinophils % 3 % 04/21/17 07:49 Basophils % 0 % 04/21/17 07:49 Neutrophils # 6.2 k/uL (1.3-7.7) 04/21/17 07:49 Lymphocytes # 1.2 k/uL (1.0-4.8) 04/21/17 07:49 Monocytes # 0.3 k/uL (0-1.0) 04/21/17 07:49 Eosinophils # 0.2 k/uL (0-0.7) 04/21/17 07:49 Basophils # 0.0 k/uL (0-0.2) 04/21/17 07:49 ESR 36 mm/hr (0-15) H 04/18/17 21:37 PT 10.7 sec (9.0-12.0) 04/18/17 16:31 INR 1.1 (<1.2) 04/18/17 16:31 APTT 26.3 sec (22.0-30.0) 04/18/17 16:31 Sodium 142 mmol/L (137-145) 04/21/17 07:49 Potassium 3.8 mmol/L (3.5-5.1) 04/21/17 07:49 Chloride 101 mmol/L (98-107) 04/21/17 07:49 Carbon Dioxide 29 mmol/L (22-30) 04/21/17 07:49 Anion Gap 12 mmol/L 04/21/17 07:49 BUN 14 mg/dL (9-20) 04/21/17 07:49 Creatinine 0.51 mg/dL (0.66-1.25) L 04/21/17 07:49 Est GFR (MDRD) Af Amer >60 (>60 ml/min/1.73 sqM) 04/21/17 07:49 Est GFR (MDRD) Non-Af >60 (>60 ml/min/1.73 sqM) 04/21/17 07:49 Glucose 93 mg/dL (74-99) 04/21/17 07:49 Plasma Lactic Acid Darryl 0.9 mmol/L (0.7-2.0) 04/18/17 16:31 Calcium 9.3 mg/dL (8.4-10.2) 04/21/17 07:49 Total Bilirubin 0.5 mg/dL (0.2-1.3) 04/18/17 16:31 AST 27 U/L (17-59) 04/18/17 16:31 ALT 38 U/L (21-72) 04/18/17 16:31 Alkaline Phosphatase 160 U/L (38-126) H 04/18/17 16:31 C-Reactive Protein 157.8 mg/L (<10.0) H 04/18/17 16:31 Total Protein 7.1 g/dL (6.3-8.2) 04/18/17 16:31 Albumin 3.7 g/dL (3.5-5.0) 04/18/17 16:31 Rheumatoid Factor 8 IU/mL (0-15) 04/18/17 16:31 Microbiology 04/18/17 17:08 Leg - Right Gram Stain - Final 04/18/17 17:08 Leg - Right Wound Culture - Final Methicillin resist S. aureus Enterococcus faecalis 04/18/17 16:31 Blood Blood Culture - Preliminary No Growth after 72 hours 04/19/17 15:44 Blood Blood Culture - Preliminary No Growth after 48 hours 04/18/17 18:51 Leg - Left Gram Stain - Final 04/18/17 18:51 Leg - Left Wound Culture - Final Enterobacter cloacae Stacia albicans Assessment and Plan (1) Leg ulcer, left Current Visit: Yes Status: Acute Code(s): L97.929 - NON-PRS CHRONIC ULC UNSP PRT OF L LOW LEG W UNSP SEVERITY SNOMED Code(s): 40235897 (2) Wound infection Narrative/Plan: 62-year-old male presents to Hospital at the end of his recent course of antibiotic therapy with complaints of onset of redness swelling and some drainage. The patient developed a fever related contact the wound healing Center. He was advised to present to hospital for further evaluation. He however waited 5 days to come to the emergency center. He did self treat with some doxycycline that he had at home which allowed some improvement to the erythema and drainage still is having pain. Wound culture is noted is showing evidence of MRSA and Enterobacter for which the current antibiotic therapy of Invanz and daptomycin are adequate. The patient has any marked abnormalities to the femur and we have asked for orthopedic evaluation and direction as to what the next plans can be. The patient is well aware that he cannot be on intravenous antibiotic therapy for the rest of his life. Pain control is adequate. Local wound care is with the silver rope and is changed every 48 hours. Patient's anxiety is under modestly good control and will be followed. Current Visit: Yes Status: Acute Code(s): T14.8XXA - OTHER INJURY OF UNSPECIFIED BODY REGION, INITIAL ENCOUNTER; L08.9 - LOCAL INFECTION OF THE SKIN AND SUBCUTANEOUS TISSUE, UNSP SNOMED Code(s): 60531574 (3) Morbid obesity Current Visit: No Status: Acute Code(s): E66.01 - MORBID (SEVERE) OBESITY DUE TO EXCESS CALORIES SNOMED Code(s): 169858992 (4) Fracture of left femur following insertion of orthopedic implant Current Visit: No Status: Acute Code(s): M96.662 - FX FEMUR FOL INSRT ORTHO IMPLNT/PROSTH/BONE PLT, LEFT LEG SNOMED Code(s): 91207732
[2017-04-22] MEDS: HYDROcodone/APAP 10-325MG 1 EACH TAB PO SCH ×3 (05:02→15:46)
[2017-04-22] MEDS: FUROSEMIDE 80 MG TAB PO SCH (05:02)
[2017-04-22] MEDS: ACETAMINOPHEN TAB 500 MG TAB PO PRN ×2 (05:07→15:45)
[2017-04-22 08:04] LABS: Basophils % (A) 0 %; Eosinophils # (A) 0.3 k/uL (0-0.7); Eosinophils % (A) 5 %; HCT 42.9 % (39.0-53.0); HGB 14.1 gm/dL (13.0-17.5); Lymphocytes # (A) 1.7 k/uL (1.0-4.8); Lymphocytes % (A) 23 %; MCH 33.1 pg (25.0-35.0); MCHC 32.8 g/dL (31.0-37.0); MCV 100.9 fL (80.0-100.0); Monocytes # (A) 0.4 k/uL (0-1.0); Monocytes % (A) 6 %; Neutrophils # (A) 4.6 k/uL (1.3-7.7); Neutrophils % (A) 65 %; Platelet Count 360 k/uL (150-450); RBC 4.26 m/uL (4.30-5.90); RDW 12.5 % (11.5-15.5); WBC 7.2 k/uL (3.8-10.6)
[2017-04-22 08:26] LABS: Anion Gap 11 mmol/L; Blood Urea Nitrogen 19 mg/dL (9-20); Carbon Dioxide 28 mmol/L (22-30); Chloride 103 mmol/L (98-107); Glucose 88 mg/dL (74-99); Potassium 4.1 mmol/L (3.5-5.1); Sodium 142 mmol/L (137-145)
[2017-04-22] MEDS: LACTOBACILLUS ACIDOPH & BULGAR 1 EACH PACKET PO SCH (09:47)
[2017-04-22] MEDS: IBUPROFEN 800 MG TAB PO SCH (09:48)
[2017-04-22] MEDS: POTASSIUM CHLORIDE ER 10 MEQ TAB.ER.PRT PO SCH (09:48)
[2017-04-22] MEDS: FAMOTIDINE 20 MG TAB PO SCH (09:48)
[2017-04-22] MEDS: HEPARIN SODIUM,PORCINE 5,000 UNIT/ML 1 ML VIAL SQ SCH (09:49)
[2017-04-22] MEDS: BACLOFEN 10 MG TAB PO PRN (12:24)
[2017-04-22] MEDS: ASCORBIC ACID 500 MG TAB PO SCH (12:24)
[2017-04-22] MEDS: MULTIVITAMINS, THERA 1 EACH TAB PO SCH (12:24)
[2017-04-22 15:30] VITALS: BP 150/68; PULSE 85; RESP 20; TEMP 97.3
--- NOTE | 2017-04-22 16:38 | P.CNOR ---
History of Present Illness - HPI Consult date: 04/22/17 History of present illness: This is a 62-year-old male admitted for left lower leg infection. Patient states his infection started with 2 blisters on the right leg and then started to drain. Patient states he has a history of multiple left hip surgeries. Patient states he has been on antibiotics and is receiving wound care per infectious disease. Patient states he was admitted through the emergency room due to fevers. Patient denies numbness, weakness, tingling shortness breath or chest pain. Review of Systems See HPI. Past Medical History Past Medical History: Coronary Artery Disease (CAD), Chest Pain / Angina, Heart Failure, GERD/Reflux, Musculoskeletal Disorder, Osteoarthritis (OA), Rheumatoid Arthritis (RA), Rheumatoid Arthritis (RA), Skin Disorder Additional Past Medical History / Comment(s): Left leg wound. Muscle spasms in legs. "Not urinating a lot despite being on Lasix". Bilateral rotator cuff pain. History of Any Multi-Drug Resistant Organisms: MRSA Year Discovered:: 04/18/17 MDRO Source:: RIGHT LEG Past Surgical History: Joint Replacement, Orthopedic Surgery Additional Past Surgical History / Comment(s): L HIP SUGERY 1999, 2015 L hip repaired Past Anesthesia/Blood Transfusion Reactions: No Reported Reaction Past Psychological History: Anxiety, Depression Additional Psychological History / Comment(s): Pt. smokes 1/2 PPD. Pt. reports having anxiety that gets worse with hospitalization. There are no pets in the home. No recent travel. He is on disability. He has chronic mental illness. Smoking Status: Current every day smoker Past Alcohol Use History: None Reported Additional Past Alcohol Use History / Comment(s): Patient is a smoker currently at less than one half per day and started smoking when he was 24 years of age. He denies any medical marijuana, marijuana, street drug or alcohol use. He lives alone. There are no pets in the home. No recent travel. He is on disability. Past Drug Use History: None Reported Additional Drug Use History / Comment(s): HAS USED FOR PAIN OCC. - Past Family History Mother Family Medical History: Cancer Additional Family Medical History / Comment(s): Breast cancer, . Father Family Medical History: Myocardial Infarction (OR) Medications and Allergies Home Medications Medication Instructions Recorded Confirmed Type Baclofen [Lioresal] 20 mg PO TID PRN 04/24/15 04/18/17 History Ergocalciferol [Vitamin D2 50,000 unit PO FR 04/24/15 04/18/17 History (DRISDOL)] Furosemide [Lasix] 80 mg PO BID 04/24/15 04/18/17 History Ranitidine HCl [Zantac] 150 mg PO BID 04/24/15 04/18/17 History Multivitamins, Thera [Multivitamin 1 tab PO DAILY 08/26/16 04/18/17 History (formulary)] HYDROcodone/APAP 10-325MG [[place] 1 tab PO QID PRN #30 10/02/16 04/18/17 Rx 10-325] ALPRAZolam [Xanax] 0.25 mg PO TID PRN 11/07/16 04/18/17 History Acetaminophen [Tylenol Extra 500 mg PO Q6H PRN 11/07/16 04/18/17 History Strength] Ascorbic Acid [Vitamin C] 1,000 mg PO DAILY 01/07/17 04/18/17 History L.acidoph,Paracasei, B.lactis 2 cap PO DAILY 02/08/17 04/18/17 History [Probiotic] Potassium Chloride ER [K-Dur 10] 10 meq PO BID 02/08/17 04/18/17 History Lactobacillus Acidoph & [place] 1 packet PO BID 04/18/17 04/18/17 History [Lactinex] Nitroglycerin Sl Tabs [Nitrostat] 0.4 mg SUBLINGUAL Q5M PRN 04/18/17 04/18/17 History Ertapenem [INVanz] 1 gm IVPB Q24H #28 bag 04/22/17 Rx Ibuprofen [Motrin] 400 mg PO BID #0 04/22/17 04/18/17 Rx Allergies Allergy/AdvReac Type Severity Reaction Status Date / Time adhesive Allergy Rash/Hives Verified 04/18/17 16:42 latex Allergy Rash/Hives Verified 04/18/17 16:42 levofloxacin [From Levaquin] Allergy Rash/Hives Verified 04/18/17 16:42 metolazone Allergy Unknown Verified 04/18/17 16:42 amoxicillin AdvReac Unknown Verified 04/18/17 16:42 ciprofloxacin [From Cipro] AdvReac Diarrhea Verified 04/18/17 16:42 ciprofloxacin HCl AdvReac Diarrhea Verified 04/18/17 16:42 [From Cipro] doxycycline AdvReac BLISTERS Verified 04/18/17 16:42 sulfamethoxazole AdvReac Unknown Verified 04/18/17 16:42 [From Bactrim] trimethoprim [From Bactrim] AdvReac Unknown Verified 04/18/17 16:42 vancomycin AdvReac Nausea Verified 04/18/17 16:42 PAPER TAPE Allergy Mild Rash/Hives Uncoded 04/08/17 14:48 Physical Examination On exam patient is sitting up in bed in no acute distress. Patient is alert and oriented 3. There is a dry gauze dressing to the left lower leg. Patient has full foot and ankle motion without difficulty or pain. Neurovascular status and circulatory status are intact. Results X-rays of the left femur show: Extensive surgery. No change of position compared to old exam. No change in the bone density compared to old exam. I do not see specific site of osteomyelitis. White blood cell scan might be helpful for further evaluation if clinically indicated. Report by Dr. Smith. - Labs Labs: Abnormal Lab Results - Last 24 Hours (Table) 04/22/17 04/22/17 Range/Units 07:27 07:27 RBC 4.26 L (4.30-5.90) m/uL MCV 100.9 H (80.0-100.0) fL Creatinine 0.50 L (0.66-1.25) mg/dL Microbiology - Last 24 Hours (Table) 04/18/17 17:08 Gram Stain - Final Leg - Right Wound Culture - Final Methicillin resist S. aureus Enterococcus faecalis 04/18/17 16:31 Blood Culture - Preliminary Blood No Growth after 72 hours 04/19/17 15:44 Blood Culture - Preliminary Blood No Growth after 48 hours H & H 04/18/17 04/21/17 04/22/17 Range/Units 16:31 07:49 07:27 Hgb 14.8 15.0 14.1 (13.0-17.5) gm/dL Hct 43.8 46.2 42.9 (39.0-53.0) % Coagulation 04/18/17 Range/Units 16:31 INR 1.1 (<1.2) Result Diagrams: 04/22/17 07:27 04/22/17 07:27 Assessment and Plan (1) Leg ulcer, left Current Visit: Yes Status: Acute Code(s): L97.929 - NON-PRS CHRONIC ULC UNSP PRT OF L LOW LEG W UNSP SEVERITY SNOMED Code(s): 07436838 (2) Wound infection Current Visit: Yes Status: Acute Code(s): T14.8XXA - OTHER INJURY OF UNSPECIFIED BODY REGION, INITIAL ENCOUNTER; L08.9 - LOCAL INFECTION OF THE SKIN AND SUBCUTANEOUS TISSUE, UNSP SNOMED Code(s): 88416129 Plan: #1. Continue antibiotics and wound care per infectious disease and internal medicine. #2. No surgical intervention is planned. Patient may follow-up as an outpatient with [facility] on an as-needed basis.
--- NOTE | 2017-04-22 23:30 | DS ---
DISCHARGE SUMMARY DATE OF SERVICE: 04/22/2017 FINAL DIAGNOSES: 1. Acute on chronic ulceration of the left leg with failed outpatient treatment Methicillin-resistant Staphylococcus aureus group D enterococcus Enterobacter cloacae and grown from the cultures. 2. Coronary artery disease. 3. History of degenerative joint disease. 4. Rheumatoid arthritis. 5. Gastroesophageal reflux disease. 6. Obesity with body mass of 37. 7. Status post PICC line. DISCHARGE DISPOSITION: The patient discharged in stable condition with guarded prognosis. HISTORY OF PRESENT ILLNESS: This 62-year-old gentleman with past medical history of multiple medical problems admitted with significant ulceration of the left leg. Patient also had orthopedic procedure previously, Dr. Kilgore and orthopedic surgery saw the patient and orthopedic surgery recommended continue the antibiotics and follow up with outpatient with [facility] and also given referral also for orthopedics specialist orthopedic surgeon as well. On exam, vitals are stable. Cardiovascular S1, S2. Abdomen soft. Legs: No edema. Central nervous system: No focal deficits. DISCHARGE ADVICE AND MEDICATIONS: 1. Diet cardiac diet. 2. Activity limited until follow up. 3. Follow up with Dr. Knight in 2-3 days. 4. Follow up with Dr. Kilgore as advised. 5. Follow up with the orthopedic surgeon as advised. MEDICATIONS ARE: 1. Tylenol 500 mg q.6h p.r.n. 2. Xanax 0.5 t.i.d. p.r.n. 3. Vitamin C 1000 mg daily. 4. Lioresal 20 mg p.o. t.i.d. 5. Vitamin D2 50,000 Friday. 6. Invanz 1 g IV q.24 hours. 7. Lasix 80 mg p.o. b.i.d. 8. [place] 10 mg q.i.d. p.r.n. 9. Motrin 400 mg p.o. b.i.d. p.r.n. 10.Probiotic 2 capsules p.o. daily. 11.Lactobacillus 1 p.o. b.i.d. 12.Multivitamins 1 p.o. daily. 13.Nitrostat 0.4 mg sublingual p.r.n. 14.K-Dur 10 mEq p.o. b.i.d. 15.Zantac 150 mg p.o. b.i.d. Once again, the patient is being discharged in stable condition. Guarded prognosis. MMODL / IJN: [id number] / MTDD
[2017-04-25] MEDS ORDERED: ERGOCALCIFEROL 50,000 UNIT CAP PO SCH (12:00)
== END 2017-04-22 16:58 | disposition home health service (06) | DRG 300 ==
LOC: EC 16:16 → 4MS4W 18:32
PROVIDERS: ADMIT Hospitalist; ATTEND Hospitalist
DX: I83.228 Varicose veins of left lower extremity with both ulcer of other part of lower extremity and inflammation (principal); L97.829 Non-pressure chronic ulcer of other part of left lower leg with unspecified severity; I50.9 Heart failure, unspecified; E66.01 Morbid (severe) obesity due to excess calories; L03.116 Cellulitis of left lower limb; B95.62 Methicillin resistant Staphylococcus aureus infection as the cause of diseases classified elsewhere; Z16.24 Resistance to multiple antibiotics; B95.2 Enterococcus as the cause of diseases classified elsewhere; I25.10 Atherosclerotic heart disease of native coronary artery without angina pectoris; M06.9 Rheumatoid arthritis, unspecified; M19.91 Primary osteoarthritis, unspecified site; K21.9 Gastro-esophageal reflux disease without esophagitis; F41.9 Anxiety disorder, unspecified; F32.9 Major depressive disorder, single episode, unspecified; F17.210 Nicotine dependence, cigarettes, uncomplicated; S72.302D Unspecified fracture of shaft of left femur, subsequent encounter for closed fracture with routine healing; Z68.39 Body mass index [BMI] 39.0-39.9, adult; Z79.2 Long term (current) use of antibiotics; Z79.1 Long term (current) use of non-steroidal anti-inflammatories (NSAID); Z79.899 Other long term (current) drug therapy; Z96.642 Presence of left artificial hip joint; Z88.1 Allergy status to other antibiotic agents; Z91.040 Latex allergy status; Z88.2 Allergy status to sulfonamides; Z88.8 Allergy status to other drugs, medicaments and biological substances; Z91.048 Other nonmedicinal substance allergy status
CPT/HCPCS: 36415; 80048; 80053; 83605; 85025; 85610; 85652; 85730; 86140; 86431; 87040; 87070; 87077; 87186; 87205; 99284

== ENCOUNTER → 2021-08-28 | Outpatient (CLI) | payer OTHER ==
--- NOTE | 2021-08-28 13:41 | CT ---
EXAMINATION TYPE: CT femur LT wo con CT DLP: 1855.6 mGycm, Automated exposure control for dose reduction was used. DATE OF EXAM: 08/28/2021 1:30 PM COMPARISON: Left femur radiographs 04/18/2017, CT 02/12/2017 CLINICAL INDICATION:Male, 66 years old with history of osteomyelitis; TECHNIQUE: Axial images were obtained of the left femur without the use of IV contrast. Additional c oronal and sagittal reformatted images and soft tissue and bone window were obtained for review. 3-D reconstruction was created on a separate workstation. FINDINGS: There is post surgical changes to the left hip with additional fixation hardware and cercla ge wires noted along the course of the femur. Hardware appears intact. There is streak artifact which limits evaluation of fine bony detail. No gross evidence for osseous erosion changes definitively vi sualized. No acute fracture identified. There is subjacent edema throughout the left lower extremity. No organizing fluid collections identified. IMPRESSION: 1. No convincing evidence for osseous erosion to suggest osteomyelitis. 2. Post left hip arthroplasty changes and status post periprosthetic fracture fixation with hardware intact. 3. Diffuse left lower extremity subcutaneous edema.
== END | disposition home or self-care (01) ==
LOC: RADCTMAIN 12:45
PROVIDERS: ATTEND Internal Medicine Infectious Disease
DX: M97.02XA Periprosthetic fracture around internal prosthetic left hip joint, initial encounter (principal); M86.652 Other chronic osteomyelitis, left thigh

== ENCOUNTER → 2021-10-02 | Outpatient (CLI) | payer OTHER ==
--- NOTE | 2021-10-02 15:16 | XR ---
EXAMINATION TYPE: XR femur LT DATE OF EXAM: 10/02/2021 COMPARISON: 04/18/2017 HISTORY: Pain TECHNIQUE: 2 views submitted FINDINGS: Extensive postsurgical changes are seen which appear similar to the prior exam. Diffuse ost eopenia. There is a surgical screw which appears separate from the orthopedic plate within the subcut aneous tissues. Additional metallic possible foreign body seen lateral like to recommend correlation clinically. The plate proximally is somewhat separate from the bone. Arthropathy of the knee. Subcuta neous calcifications noted. IMPRESSION: 1. Postsurgical changes. There is a orthopedic screw seen outside the fixation plate within the later al soft tissues. Additionally there is additional linear metallic structures which are new from prior exam may represent additional foreign body correlate clinically. 2. The fixation plate appears somewhat offset from the proximal portion of the femur correlate clini lori.
--- NOTE | 2021-10-02 15:20 | XR ---
EXAMINATION TYPE: XR Hip LT and AP Pelvis DATE OF EXAM: 10/02/2021 COMPARISON: NONE HISTORY: pain TECHNIQUE: A single AP view of the pelvis is obtained. Two views of the left hip are obtained. FINDINGS: There is degenerative changes of the lower lumbar spine with diffuse osteopenia and severe narrowing of the right hip joint with remodeling. Postsurgical change left hip. Diffuse osteopenia w ith vascular calcifications in the pelvis. There may be early fusion of the SI joints. IMPRESSION: 1. Severe arthropathy right hip. 2. Postsurgical changes left hip. 3. Degenerative disc disease lower lumbar spine.
== END | disposition home or self-care (01) ==
LOC: RADXRMAIN 12:54
PROVIDERS: ATTEND Plastic Surgery
DX: M16.11 Unilateral primary osteoarthritis, right hip (principal); M51.36 Other intervertebral disc degeneration, lumbar region; M79.652 Pain in left thigh; Z98.890 Other specified postprocedural states
CPT/HCPCS: 73502

== ENCOUNTER → 2021-10-02 | Outpatient (CLI) | payer OTHER ==
--- NOTE | 2021-10-02 15:01 | CT ---
EXAMINATION TYPE: CT hip LT wo con CT DLP: 1085.4 mGycm, Automated exposure control for dose reduction was used. DATE OF EXAM: 10/02/2021 1:28 PM COMPARISON: Left femur 08/28/2021 CLINICAL INDICATION:Male, 66 years old with history of M86.652 OTHER CHRONIC OSTEOMYELITIS, LEFT THIG H;, left leg pain and infection TECHNIQUE: Axial images were obtained of the left hip without the use of IV contrast. Additional cor onal and sagittal reformatted images and soft tissue and bone window were obtained for review. FINDINGS: Extensive streak artifact limits evaluation of the left lower extremity. Hardware appears i ntact. Evaluation for osseous erosion is extremely limited given the amount of streak artifact. There is significant heterotropic ossification around the left hip.. No evidence of fracture. No definitiv e evidence for joint effusion. There is diffuse soft tissue swelling throughout the lower extremity. There is enlarged left inguina l and anterior left thigh lymph nodes measuring up to 16 mm in short axis. There is no organizing flu id collections identified. Scattered clonic diverticula present. IMPRESSION: 1. Redemonstration of left hip arthroplasty changes with revision. Overall the hardware is intact. E valuation for subtle osseous erosion is extremely limited given streak artifact. 2. There is extensive lymphadenopathy in the anterior proximal thigh which is not significantly hardwick ged from prior on 08/28/2021 3. Persistent soft tissue swelling of the left lower extremity. 4. No evidence of hardware failure or acute fracture.
== END | disposition home or self-care (01) ==
LOC: RADCTMAIN 12:41
PROVIDERS: ATTEND Internal Medicine Infectious Disease
DX: M86.652 Other chronic osteomyelitis, left thigh (principal); R59.0 Localized enlarged lymph nodes

== ENCOUNTER → 2022-10-15 | Outpatient (CLI) | payer MEDICARE, OTHER ==
--- NOTE | 2022-10-16 07:01 | CA ---
Transthoracic Echo Report Name: Camron Bowers Age: 67 Gender: M : 1955 Exam Date: 10/15/2022 09:01 Exam Location: [facility] Ht (in): 73 Wt (lb): 285 Ordering Physician: Devang Pardo DO ([id number]) Attending/Referring Phys: Human Resources Records Clerk Lynne Bean RDCS Procedure CPT: Indications: R06.02 Z01.810 Cardiac Hx: Technical Quality: Fair Contrast 1: Total Dose (mL): Contrast 2: Total Dose (mL): MEASUREMENTS (Male / Female) Normal Values 2D ECHO LV Diastolic Diameter PLAX 3.4 cm 4.2 - 5.9 / 3.9 - 5.3 cm LV Systolic Diameter PLAX 2.5 cm IVS Diastolic Thickness 1.6 cm 0.6 - 1.0 / 0.6 - 0.9 cm LVPW Diastolic Thickness 1.4 cm 0.6 - 1.0 / 0.6 - 0.9 cm LV Relative Wall Thickness 0.9 LA Volume 54.6 cm??? 18 - 58 / 22 - 52 cm??? M-MODE Aortic Root Diameter MM 4.2 cm LA Systolic Diameter MM 4.0 cm LA Ao Ratio MM 1.0 AV Cusp Separation MM 2.7 cm DOPPLER AV Peak Velocity 131.2 cm/s AV Peak Gradient 6.9 mmHg AV Mean Velocity 95.6 cm/s AV Mean Gradient 4.1 mmHg AV Velocity Time Integral 26.2 cm LVOT Peak Velocity 91.5 cm/s LVOT Peak Gradient 3.3 mmHg LVOT Velocity Time Integral 19.5 cm MV Area PHT 2.4 cm??? Mitral E Point Velocity 34.2 cm/s Mitral A Point Velocity 56.9 cm/s Mitral E to A Ratio 0.6 MV Deceleration Time 311.5 ms MV E' Velocity 8.2 cm/s Mitral E to MV E' Ratio 4.2 FINDINGS Left Ventricle Moderately increased left ventricular wall thickness. Left ventricular cavity size normal. Mildly reduced global left ventricular systolic function. Left ventricular ejection fraction is estimated at 50 %. Right Ventricle Right ventricle not well visualized. Right Atrium Right atrium not well visualized. Left Atrium Normal left atrial size. Mitral Valve Structurally normal mitral valve. Mild mitral regurgitation. Aortic Valve No aortic valve stenosis or regurgitation. Tricuspid Valve Mild tricuspid regurgitation. Pulmonic Valve Mild pulmonic regurgitation. Pericardium No pericardial effusion. Aorta Normal size aortic root and proximal ascending aorta. CONCLUSIONS Technically difficult study. The LV endocardium was not well visualized Low normal LV systolic function with EF at 50% Previewed by: Dr. Wong Escalona MD (Electronically Signed) Final Date: 16 October 2022 07:01
== END | disposition home or self-care (01) ==
LOC: RADNMMAIN 08:54
PROVIDERS: ATTEND Internal Medicine
DX: Z01.810 Encounter for preprocedural cardiovascular examination (principal); R06.02 Shortness of breath
CPT/HCPCS: 93306